=== PATIENT | male | born 1970 | race Caucasian/White ===

== ENCOUNTER → 2016-11-24 | Outpatient (CLI) | payer MEDICARE, MEDICAID ==
[2016-11-24 10:05] LABS: PROTHROMBIN TIME 15.4 SEC (11.4-15.4)
== END ==
LOC: OD 08:49
PROVIDERS: ATTEND Internal Medicine
DX: I48.91 Unspecified atrial fibrillation (principal)
CPT/HCPCS: 36415; 85610

== ENCOUNTER → 2016-12-09 | Outpatient (CLI) | payer MEDICARE, MEDICAID ==
[2016-12-09 09:34] LABS: ABSOLUTE EOSINOPHILS # (AUTO) 0.2 10^3/uL (0.0-0.6); ABSOLUTE LYMPHOCYTES (AUTO) 1.6 10^3/uL (0.5-4.7); ABSOLUTE MONOCYTES (AUTO) 0.5 10^3/uL (0.1-1.4); ABSOLUTE NEUT (AUTO) 5.9 10^3/uL (1.7-8.2); BASOPHILS % (AUTO) 0.4 % (0-2); EOSINOPHILS % (AUTO) 2.7 % (0-6); HEMATOCRIT 45.6 % (37.9-51.0); HGB HCT DIFFERENCE -0.6; LYMPHOCYTES % (AUTO) 19.8 % (13-45); MEAN CORPUSCULAR HEMOGLOBIN 26.7 pg (27.0-33.4); MEAN CORPUSCULAR HGB CONC 32.8 g/dL (32.0-36.0); MEAN CORPUSCULAR VOLUME 81 fl (80-97); RED BLOOD COUNT 5.61 10^6/uL (4.35-5.55); RED CELL DISTRIBUTION WIDTH 15.2 % (11.5-14.0); SEGMENTED NEUTROPHILS % (AUTO) 71.1 % (42-78); WHITE BLOOD COUNT 8.3 10^3/uL (4.0-10.5)
[2016-12-09 09:41] LABS: PROTHROMBIN TIME 29.3 SEC (11.4-15.4)
[2016-12-09 10:01] LABS: ALANINE AMINOTRANSFERASE 39 U/L (21-72); ALKALINE PHOSPHATASE 82 U/L (38-126); ANION GAP 8 (5-19); ASPARTATE AMINO TRANSFERASE 28 U/L (17-59); BILIRUBIN,TOTAL 0.9 mg/dL (0.2-1.3); BLOOD UREA NITROGEN 7 mg/dL (7-20); CALCIUM 9.4 mg/dL (8.4-10.2); CARBON DIOXIDE 29 mmol/L (22-30); CHLORIDE 102 mmol/L (98-107); CHOLESTEROL 131.93 mg/dL (0-200); CREATININE RESULT 0.81 mg/dL (0.52-1.25); Direct HDL 33 mg/dL (>40); GLUCOSE 230 mg/dL (75-110); POTASSIUM 4.5 mmol/L (3.6-5.0); SODIUM 139.4 mmol/L (137-145); TOTAL PROTEIN 6.9 g/dL (6.3-8.2); TRIGLYCERIDES 197 mg/dL (<150)
[2016-12-09 10:12] LABS: DIRECT LDL 68 mg/dL (<100)
[2016-12-09 10:14] LABS: VLDL CHOLESTEROL 39.4 mg/dL (10-31)
== END ==
LOC: OD 08:38
PROVIDERS: ATTEND Internal Medicine
DX: E11.9 Type 2 diabetes mellitus without complications (principal); E03.9 Hypothyroidism, unspecified; R53.82 Chronic fatigue, unspecified; I48.91 Unspecified atrial fibrillation; Z79.899 Other long term (current) drug therapy
CPT/HCPCS: 36415; 80053; 80061; 82043; 83036; 84443; 85025; 85610

== ENCOUNTER → 2017-01-27 | Outpatient (CLI) | payer MEDICARE, MEDICAID ==
[2017-01-27 11:51] LABS: PROTHROMBIN TIME 38.4 SEC (11.4-15.4)
== END ==
LOC: OD 10:43
PROVIDERS: ATTEND Internal Medicine
DX: I48.91 Unspecified atrial fibrillation (principal)
CPT/HCPCS: 36415; 85610

== ENCOUNTER → 2017-02-01 | Outpatient (CLI) | payer MEDICARE, MEDICAID ==
[2017-02-01 10:47] LABS: PROTHROMBIN TIME 21.8 SEC (11.4-15.4)
== END ==
LOC: OD 09:06
PROVIDERS: ATTEND Internal Medicine
DX: Z79.01 Long term (current) use of anticoagulants (principal)
CPT/HCPCS: 36415; 85610

== ENCOUNTER → 2017-02-15 | Outpatient (CLI) | payer MEDICARE, MEDICAID | LOC: OD 07:58 | PROVIDERS: ATTEND Internal Medicine | DX: Z79.01 Long term (current) use of anticoagulants (principal) | CPT/HCPCS: 36415; 85610 ==

== ENCOUNTER → 2017-02-21 | Outpatient (CLI) | payer MEDICARE, MEDICAID ==
[2017-02-21 12:05] LABS: PROTHROMBIN TIME 27.8 SEC (11.4-15.4)
== END ==
LOC: OD 09:34
PROVIDERS: ATTEND Internal Medicine
DX: Z79.01 Long term (current) use of anticoagulants (principal)
CPT/HCPCS: 36415; 85610

== ENCOUNTER → 2017-03-15 | Outpatient (CLI) | payer MEDICARE, MEDICAID | LOC: OD 08:42 | PROVIDERS: ATTEND Internal Medicine | DX: Z79.01 Long term (current) use of anticoagulants (principal) | CPT/HCPCS: 36415; 85610 ==

== ENCOUNTER → 2017-03-29 | Outpatient (CLI) | payer MEDICARE, MEDICAID | LOC: OD 07:29 | PROVIDERS: ATTEND Internal Medicine | DX: Z79.01 Long term (current) use of anticoagulants (principal); Z51.81 Encounter for therapeutic drug level monitoring | CPT/HCPCS: 36415; 85610 ==

== ENCOUNTER → 2017-04-26 | Outpatient (CLI) | payer MEDICARE, MEDICAID ==
[2017-04-26 09:39] LABS: PROTHROMBIN TIME 20.3 SEC (11.4-15.4)
== END ==
LOC: OD 08:53
PROVIDERS: ATTEND Internal Medicine
DX: Z79.01 Long term (current) use of anticoagulants (principal); Z51.81 Encounter for therapeutic drug level monitoring
CPT/HCPCS: 85610

== ENCOUNTER → 2017-05-17 | Outpatient (CLI) | payer MEDICARE, MEDICAID ==
[2017-05-17 09:44] LABS: PROTHROMBIN TIME 24.3 SEC (11.4-15.4)
== END ==
LOC: OD 08:36
PROVIDERS: ATTEND Internal Medicine
DX: Z79.01 Long term (current) use of anticoagulants (principal); Z51.81 Encounter for therapeutic drug level monitoring
CPT/HCPCS: 36415; 85610

== ENCOUNTER → 2017-06-16 | Outpatient (CLI) | payer MEDICARE, MEDICAID ==
[2017-06-16 10:42] LABS: PROTHROMBIN TIME 16.3 SEC (11.4-15.4)
== END ==
LOC: OD 10:00
PROVIDERS: ATTEND Internal Medicine
DX: Z79.01 Long term (current) use of anticoagulants (principal); Z51.81 Encounter for therapeutic drug level monitoring
CPT/HCPCS: 36415; 85610

== ENCOUNTER → 2017-06-21 | Outpatient (CLI) | payer MEDICARE, MEDICAID ==
[2017-06-21 10:21] LABS: ABSOLUTE EOSINOPHILS # (AUTO) 0.3 10^3/uL (0.0-0.6); ABSOLUTE LYMPHOCYTES (AUTO) 1.6 10^3/uL (0.5-4.7); ABSOLUTE MONOCYTES (AUTO) 0.4 10^3/uL (0.1-1.4); ABSOLUTE NEUT (AUTO) 4.7 10^3/uL (1.7-8.2); BASOPHILS % (AUTO) 0.7 % (0-2); EOSINOPHILS % (AUTO) 3.8 % (0-6); HEMATOCRIT 43.2 % (37.9-51.0); HEMOGLOBIN 14.6 g/dL (13.5-17.0); HGB HCT DIFFERENCE 0.6; LYMPHOCYTES % (AUTO) 22.6 % (13-45); MEAN CORPUSCULAR HEMOGLOBIN 26.9 pg (27.0-33.4); MEAN CORPUSCULAR HGB CONC 33.7 g/dL (32.0-36.0); MEAN CORPUSCULAR VOLUME 80 fl (80-97); MONOCYTES % (AUTO) 5.9 % (3-13); RED BLOOD COUNT 5.41 10^6/uL (4.35-5.55); RED CELL DISTRIBUTION WIDTH 14.9 % (11.5-14.0)
[2017-06-21 10:33] LABS: PROTHROMBIN TIME 28.2 SEC (11.4-15.4)
[2017-06-21 10:50] LABS: ALANINE AMINOTRANSFERASE 34 U/L (21-72); ALBUMIN 4.2 g/dL (3.5-5.0); ALKALINE PHOSPHATASE 96 U/L (38-126); ANION GAP 10 (5-19); ASPARTATE AMINO TRANSFERASE 26 U/L (17-59); BILIRUBIN,DIRECT 0.4 mg/dL (0.0-0.4); BILIRUBIN,TOTAL 0.7 mg/dL (0.2-1.3); BLOOD UREA NITROGEN 6 mg/dL (7-20); CALCIUM 9.5 mg/dL (8.4-10.2); CARBON DIOXIDE 28 mmol/L (22-30); CHLORIDE 102 mmol/L (98-107); CHOLESTEROL 125.77 mg/dL (0-200); Direct HDL 35 mg/dL (>40); GLUCOSE 267 mg/dL (75-110); POTASSIUM 4.2 mmol/L (3.6-5.0); SODIUM 139.8 mmol/L (137-145); TOTAL PROTEIN 7.4 g/dL (6.3-8.2); TRIGLYCERIDES 141 mg/dL (<150)
[2017-06-21 11:01] LABS: DIRECT LDL 66 mg/dL (<100)
[2017-06-22 11:40] LABS: CREATININE URINE 174.6 mg/dL (Not Estab.); MICROALBUMIN URINE 203.2 ug/mL (Not Estab.)
== END ==
LOC: OD 09:36
PROVIDERS: ATTEND Family Medicine Geriatric Medicine
DX: E03.9 Hypothyroidism, unspecified (principal); E11.9 Type 2 diabetes mellitus without complications; I10 Essential (primary) hypertension; E78.5 Hyperlipidemia, unspecified; N40.1 Benign prostatic hyperplasia with lower urinary tract symptoms; Z79.01 Long term (current) use of anticoagulants; Z79.899 Other long term (current) drug therapy
CPT/HCPCS: 36415; 80053; 80061; 82043; 82570; 83036; 84153; 84443; 85025; 85610

== ENCOUNTER 2017-07-28 11:32 | Emergency (ER) | payer MEDICARE, MEDICAID ==
[2017-07-28 11:42] VITALS: BP 135/77
[2017-07-28] MEDS ORDERED: METHYLPREDNISOLONE INJ 125 MG/2 ML SDV IM ONE (12:18)
--- NOTE | 2017-07-28 12:23 | ER Document Report ---
HPI - HPI Pain Level: 3 Notes: Patient is a 46-year-old male whose presents the ED complaining of a rash his hands bilaterally after using 2 different cleaning chemicals on Tuesday. Patient states that the rash started later that evening. Patient states that he did not wash his hands in between. Patient states that the rash has a burning sensation along with itchiness. Benadryl did help with his symptoms. He still eating and drinking well any difficulties. Patient has a history of diabetes, hypertension, hypothyroid, and hypercholesterolemia. Patient does take Coumadin. The rash has not been spreading. No other concerns or complaints at this time. Denies any other drug allergies. Denies any headache , fever, neck pain, URI, sore throat, chest pain, palpitations, syncope, cough, shortness of breath, wheeze, dyspnea, abdominal pain, nausea/vomiting/diarrhea, dysuria, hematuria, numbness/tingling, muscle paralysis/weakness, joint pains. Denies recent illness, travel, or insect bite. - ROS Notes: REVIEW OF SYSTEMS: CONSTITUTIONAL : Denies fever, chills, or sweats. Denies recent illness. EENT: Denies eye, ear, throat, or mouth pain or symptoms. Denies nasal or sinus congestion or discharge. Denies throat, tongue, or mouth swelling or difficulty swallowing. CARDIOVASCULAR: Denies chest pain. Denies palpitations or racing or irregular heart beat. Denies ankle edema. RESPIRATORY: Denies cough, cold, or chest congestion. Denies shortness of breath, difficulty breathing, or wheezing. GASTROINTESTINAL: Denies abdominal pain or distention. Denies nausea, vomiting , or diarrhea. Denies blood in vomitus, stools, or per rectum. Denies black, tarry stools. Denies constipation. GENITOURINARY: Denies difficulty urinating, painful urination, burning, frequency, blood in urine, or discharge. MUSCULOSKELETAL: Denies back or neck pain or stiffness. Denies joint pain or swelling. SKIN: see hpi NEUROLOGICAL: Denies confusion or altered mental status. Denies passing out or loss of consciousness. Denies dizziness or lightheadedness. Denies headache. Denies weakness or paralysis or loss of use of either side. Denies problems with gait or speech. Denies sensory loss, numbness, or tingling. ALL OTHER SYSTEMS REVIEWED AND NEGATIVE. Dictation was performed using Dragon voice recognition software - REPRODUCTIVE Reproductive: DENIES: : - DERM Skin Color: Normal Past Medical History - Social History Smoking Status: Unknown if Ever Smoked Family History: CAD, DM, Hyperlipidemia, Hypertension Patient has suicidal ideation: No Patient has homicidal ideation: No - Past Medical History Cardiac Medical History: Reports: Hx Congestive Heart Failure - dificulty breathing when lying down, sleeps sitting up, HAS MECHANICAL AORTIC VALVE, Hx Hypercholesterolemia, Hx Hypertension Denies: Hx Atrial Fibrillation, Hx Coronary Artery Disease, Hx Heart Attack, Hx Peripheral Vascular Disease, Hx Heart Murmur Pulmonary Medical History: Denies: Hx Asthma, Hx Bronchitis, Hx COPD, Hx Pneumonia, Hx Tuberculosis Neurological Medical History: Reports: Hx Migraine. Denies: Hx Cerebrovascular Accident, Hx Seizures Endocrine Medical History: Reports: Hx Diabetes Mellitus Type 2, Hx Hypothyroidism. Denies: Hx Graves' Disease, Hx Hyperthyroidism Renal/ Medical History: Reports: Hx Kidney Stones. Denies: Hx Benign Prostatic Hyperplasia, Hx End Stage Renal Disease, Hx Peritoneal Dialysis GI Medical History: Reports: Hx Gastroesophageal Reflux Disease Musculoskeltal Medical History: Reports Hx Arthritis, Denies Hx Fibromyalgia, Denies Hx Muscular Dystrophy, Reports Hx Musculoskeletal Deformity, Reports Hx Musculoskeletal Trauma Skin Medical History: Denies Hx MRSA Psychiatric Medical History: Denies: Hx Depression Traumatic Medical History: Reports: Hx Fractures Past Surgical History: Reports: Hx Cardiac Surgery - aortic bicuspid valve, replaced with mechanical valve, Hx Cholecystectomy, Hx Herniorrhaphy, Hx Kidney (Renal Surgery), Hx Orthopedic Surgery - L ankle, Hx Tonsillectomy. Denies: Hx Appendectomy, Hx Bowel Surgery, Hx Gastric Bypass Surgery, Hx Pacemaker. Comment Only: Hx Coronary Artery Bypass Graft - MECHANICAL VALVE PLACEMENT, - Immunizations Immunizations up to date: Yes Hx Diphtheria, Pertussis, Tetanus Vaccination: No Vertical Provider Document - CONSTITUTIONAL Agree With Documented VS: Yes Notes: PHYSICAL EXAMINATION: GENERAL: Well-appearing, well-nourished and in no acute distress. NECK: Normal range of motion, supple without lymphadenopathy LUNGS: Breath sounds clear to auscultation bilaterally and equal. No wheezes rales or rhonchi. HEART: Regular rate and rhythm without murmurs, rubs, gallops. Musculoskeletal: Hands b/l: FROM to passive/active. Strength 5+/5. Extremities: No cyanosis, clubbing, or edema b/l. Peripheral pulses 2+. Capillary refill less than 3 seconds. NEUROLOGICAL: Normal speech, normal gait. Normal sensory, motor exams PSYCH: Normal mood, normal affect. SKIN: maculopapular erythemic lesions to the hands b/l. Non-tender. No abscess , streaks, purulent discharge. No prox lymphadenopathy. - INFECTION CONTROL TRAVEL OUTSIDE OF THE [place] IN LAST 30 DAYS: No - RESPIRATORY O2 Sat by Pulse Oximetry: 96 Course - Re-evaluation Re-evalutation: 07/28/17 12:22 Patient is an afebrile, well-hydrated, 46-year-old male who presents the ED with suspected contact dermatitis to his hands bilaterally. Vitals are stable. PE otherwise unremarkable. Low suspicion for any necrotizing fasciitis, septic joint, sepsis, deep space infection, or other systemic emergent condition at this time. Patient is aware that his condition can change from initial presentation and he needs to monitor symptoms closely and seek medical attention if any acute changes. Solu-Medrol 125 mg given IM today. I will send him home with a prescription for triamcinolone that he can apply as directed. He may continue Benadryl as needed. Conservative measures otherwise for symptoms. Recheck with your PCM in 2-3 days. Return to the ED with any worsening/concerning symptoms otherwise as reviewed discharge. Consider consult with dermatology. Patient is in agreement. - Vital Signs Vital signs: Temp Pulse Resp BP Pulse Ox 97.7 F 87 20 135/77 H 96 07/28/17 11:39 07/28/17 11:39 07/28/17 11:39 07/28/17 11:39 07/28/17 11:39 Discharge - Discharge Clinical Impression: Contact dermatitis Qualifiers: Contact dermatitis type: irritant Contact dermatitis trigger: other chemical product Qualified Code(s): L24.5 - Irritant contact dermatitis due to other chemical products Condition: Stable Disposition: HOME, SELF-CARE Instructions: Contact Dermatitis ([facility]), Topical Steroid Cream or Ointment ([facility]) , Steroid Medication Injection Additional Instructions: Keep her hands clean and dry Use steroid cream as directed Benadryl as needed, will watch for drowsiness Monitor your blood glucose levels closely while on steroids and after steroid injection Tylenol/ibuprofen if needed Recheck with your PCM in 2-3 days* Consider consult with dermatology for ongoing/worsening symptoms Return to the ED with any worsening symptoms and/or development of fever, headache, chest pain, palpitations, syncope, shortness of breath, trouble breathing, abdominal pain, n/v/d, blood in stool/urine, abscess, purulent discharge, streaks, or other worsening symptoms that are concerning to you. Prescriptions: Triamcinolone Acetonide [Aristocort 0.5% Cream 15 gm] 1 applic TP BID #1 tube Forms: Elevated Blood Pressure Referrals: KVNG MACK DO [ACTIVE STAFF] - Follow up as needed
== END 2017-07-28 12:33 | disposition home or self-care (01) ==
LOC: ER 11:32
DX: T65.891A Toxic effect of other specified substances, accidental (unintentional), initial encounter (principal); L24.5 Irritant contact dermatitis due to other chemical products; E11.9 Type 2 diabetes mellitus without complications; I10 Essential (primary) hypertension; Z95.2 Presence of prosthetic heart valve; Z79.01 Long term (current) use of anticoagulants
CPT/HCPCS: 99283; 96372; J2930

== ENCOUNTER → 2017-08-09 | Outpatient (CLI) | payer MEDICARE, MEDICAID ==
[2017-08-09 10:25] LABS: PROTHROMBIN TIME 28.4 SEC (11.4-15.4)
== END ==
LOC: OD 09:25
PROVIDERS: ATTEND Internal Medicine
DX: I35.0 Nonrheumatic aortic (valve) stenosis (principal); Z95.2 Presence of prosthetic heart valve; Z79.01 Long term (current) use of anticoagulants
CPT/HCPCS: 36415; 85610

== ENCOUNTER → 2017-09-22 | Outpatient (CLI) | payer MEDICARE, MEDICAID ==
[2017-09-22 12:02] LABS: PROTHROMBIN TIME 17.1 SEC (11.4-15.4)
== END ==
LOC: OD 10:41
PROVIDERS: ATTEND Internal Medicine
DX: Z51.81 Encounter for therapeutic drug level monitoring (principal); Z79.01 Long term (current) use of anticoagulants
CPT/HCPCS: 36415; 85610

== ENCOUNTER → 2017-09-26 | Outpatient (CLI) | payer MEDICARE, MEDICAID ==
[2017-09-26 10:37] LABS: INTERNATIONAL RATION (INR) 1.62; PROTHROMBIN TIME 20.2 SEC (11.4-15.4)
== END ==
LOC: OD 09:24
PROVIDERS: ATTEND Internal Medicine
DX: I49.5 Sick sinus syndrome (principal); Z79.01 Long term (current) use of anticoagulants; Z95.2 Presence of prosthetic heart valve
CPT/HCPCS: 36415; 85610

== ENCOUNTER → 2017-10-03 | Outpatient (CLI) | payer MEDICARE, MEDICAID ==
[2017-10-03 11:32] LABS: PROTHROMBIN TIME 23.3 SEC (11.4-15.4)
== END ==
LOC: OD 09:35
PROVIDERS: ATTEND Internal Medicine
DX: I35.0 Nonrheumatic aortic (valve) stenosis (principal); Z79.01 Long term (current) use of anticoagulants
CPT/HCPCS: 36415; 85610

== ENCOUNTER → 2017-10-25 | Outpatient (CLI) | payer MEDICARE, MEDICAID ==
[2017-10-25 10:30] LABS: PROTHROMBIN TIME 14.8 SEC (11.4-15.4)
== END ==
LOC: OD 09:20
PROVIDERS: ATTEND Internal Medicine
DX: Z51.81 Encounter for therapeutic drug level monitoring (principal); Z79.01 Long term (current) use of anticoagulants
CPT/HCPCS: 36415; 85610

== ENCOUNTER 2017-11-17 15:36 | Emergency (ER) | payer MEDICARE, MEDICAID ==
[2017-11-17] MEDS ORDERED: NORMAL SALINE 1000 ML 1,000 ML IV ONE ×2 (19:39→20:58)
[2017-11-17] MEDS ORDERED: ONDANSETRON 4 MG TAB.RAPDIS PO ONE (19:39)
--- NOTE | 2017-11-17 19:41 | ER Document Report ---
ED Medical Screen (RME) - General Chief Complaint: Vomiting Stated Complaint: WEAKNESS Time Seen by Provider: 11/17/17 19:35 Notes: 46-year-old male patient reports waking up at 4 AM yesterday morning with nausea and vomiting. He had nausea vomiting throughout the day and is continued throughout the day. He did have diarrhea throughout the day yesterday but not any diarrhea today there is no fever. He was coughing a lot yesterday much less today. There is no fever. I have greeted and performed a rapid initial assessment of this patient. A comprehensive ED assessment and evaluation of the patient, analysis of test results and completion of the medical decision making process will be conducted by additional ED providers. TRAVEL OUTSIDE OF THE [place] IN LAST 30 DAYS: No - Related Data Allergies/Adverse Reactions: No Known Allergies Allergy (Verified 11/17/17 15:38) Past Medical History - Social History Frequency of alcohol use: None Drug Abuse: None Family history: Reviewed & Not Pertinent - Past Medical History Cardiac Medical History: Reports: Hx Congestive Heart Failure - dificulty breathing when lying down, sleeps sitting up, HAS MECHANICAL AORTIC VALVE, Hx Hypercholesterolemia, Hx Hypertension Denies: Hx Atrial Fibrillation, Hx Coronary Artery Disease, Hx Heart Attack, Hx Peripheral Vascular Disease, Hx Heart Murmur Pulmonary Medical History: Denies: Hx Asthma, Hx Bronchitis, Hx COPD, Hx Pneumonia, Hx Tuberculosis Neurological Medical History: Reports: Hx Migraine. Denies: Hx Cerebrovascular Accident, Hx Seizures Endocrine Medical History: Reports: Hx Diabetes Mellitus Type 2, Hx Hypothyroidism. Denies: Hx Graves' Disease, Hx Hyperthyroidism Renal/ Medical History: Reports: Hx Kidney Stones. Denies: Hx Benign Prostatic Hyperplasia, Hx End Stage Renal Disease, Hx Peritoneal Dialysis GI Medical History: Reports: Hx Gastroesophageal Reflux Disease Musculoskeltal Medical History: Reports Hx Arthritis, Denies Hx Fibromyalgia, Denies Hx Muscular Dystrophy, Reports Hx Musculoskeletal Deformity, Reports Hx Musculoskeletal Trauma Skin Medical History: Denies Hx MRSA Psychiatric Medical History: Denies: Hx Depression Traumatic Medical History: Reports: Hx Fractures Past Surgical History: Reports: Hx Cardiac Surgery - aortic bicuspid valve, replaced with mechanical valve, Hx Cholecystectomy, Hx Herniorrhaphy, Hx Kidney (Renal Surgery), Hx Orthopedic Surgery - L ankle, Hx Tonsillectomy. Denies: Hx Appendectomy, Hx Bowel Surgery, Hx Gastric Bypass Surgery, Hx Pacemaker. Comment Only: Hx Coronary Artery Bypass Graft - MECHANICAL VALVE PLACEMENT, - Immunizations Immunizations up to date: Yes Hx Diphtheria, Pertussis, Tetanus Vaccination: No Physical Exam - Vital signs Vitals: Temp Pulse Resp BP Pulse Ox 98.3 F 109 H 16 133/92 H 95 11/17/17 15:45 11/17/17 15:45 11/17/17 15:45 11/17/17 15:45 11/17/17 15:45 Course - Vital Signs Vital signs: Temp Pulse Resp BP Pulse Ox 98.3 F 105 H 18 117/93 H 97 11/17/17 15:45 11/17/17 19:38 11/17/17 19:38 11/17/17 19:38 11/17/17 19:38
[2017-11-17 20:34] LABS: ABSOLUTE BASOPHILS # (AUTO) 0.1 10^3/uL (0.0-0.2); ABSOLUTE EOSINOPHILS # (AUTO) 0.4 10^3/uL (0.0-0.6); ABSOLUTE LYMPHOCYTES (AUTO) 3.3 10^3/uL (0.5-4.7); ABSOLUTE MONOCYTES (AUTO) 0.9 10^3/uL (0.1-1.4); ABSOLUTE NEUT (AUTO) 9.4 10^3/uL (1.7-8.2); BASOPHILS % (AUTO) 0.5 % (0-2); HEMATOCRIT 50.9 % (37.9-51.0); HEMOGLOBIN 16.8 g/dL (13.5-17.0); LYMPHOCYTES % (AUTO) 23.7 % (13-45); MEAN CORPUSCULAR HEMOGLOBIN 26.6 pg (27.0-33.4); MEAN CORPUSCULAR HGB CONC 32.9 g/dL (32.0-36.0); MEAN CORPUSCULAR VOLUME 81 fl (80-97); MONOCYTES % (AUTO) 6.3 % (3-13); RED BLOOD COUNT 6.31 10^6/uL (4.35-5.55); RED CELL DISTRIBUTION WIDTH 14.7 % (11.5-14.0); SEGMENTED NEUTROPHILS % (AUTO) 66.5 % (42-78); TOTAL CELLS COUNTED % (AUTO) 100 %; WHITE BLOOD COUNT 14.1 10^3/uL (4.0-10.5)
[2017-11-17 20:39] LABS: ALANINE AMINOTRANSFERASE 35 U/L (21-72); ALBUMIN 4.8 g/dL (3.5-5.0); ALKALINE PHOSPHATASE 116 U/L (38-126); ANION GAP 16 (5-19); ASPARTATE AMINO TRANSFERASE 25 U/L (17-59); BILIRUBIN,DIRECT 0.3 mg/dL (0.0-0.4); BLOOD UREA NITROGEN 17 mg/dL (7-20); CALCIUM 10.9 mg/dL (8.4-10.2); CARBON DIOXIDE 30 mmol/L (22-30); CHLORIDE 86 mmol/L (98-107); POTASSIUM 4.3 mmol/L (3.6-5.0); SODIUM 132.2 mmol/L (137-145); TOTAL PROTEIN 7.6 g/dL (6.3-8.2)
[2017-11-17 20:40] LABS: APPEARANCE,URINE CLEAR; BILIRUBIN,URINE NEGATIVE (NEGATIVE); COLOR,URINE STRAW; GLUCOSE, URINE >=500 mg/dL (NEGATIVE); KETONES,URINE NEGATIVE (NEGATIVE); LEUKOCYTE ESTERASE,URINE NEGATIVE (NEGATIVE); NITRITE,URINE NEGATIVE (NEGATIVE); PROTEIN,URINE NEGATIVE (NEGATIVE); URINE SPECIFIC GRAVITY 1.031; UROBILINOGEN,URINE NEGATIVE mg/dL (<2.0)
[2017-11-17 20:51] LABS: PLATELET COUNT 181 10^3/uL (150-450)
[2017-11-17 20:53] LABS: GLUCOSE 614 mg/dL (75-110)
[2017-11-17] MEDS ORDERED: INSULIN REG, HUMAN 100 UNIT/ML 3 ML VIAL (PYX) IV ONE ×2 (21:23→22:56)
--- NOTE | 2017-11-17 22:36 | ER Document Report ---
ED General - General Mode of Arrival: Ambulatory Information source: Patient TRAVEL OUTSIDE OF THE [place] IN LAST 30 DAYS: No <JG HARTMANN - Last Filed: 11/18/17 04:02> <ROBIN SPENCER - Last Filed: 11/18/17 04:06> - General Chief Complaint: Vomiting Stated Complaint: WEAKNESS Time Seen by Provider: 11/17/17 19:35 Notes: Patient is a 46-year-old male who presents to the emergency department today with complaints of diarrhea and vomiting. Patient states that he takes metformin and glipizide for diabetes and he is unsure if his blood sugar has "ever been this high". Patient also complains of associated weakness, lightheadedness, and abdominal pain. (JG HARTMANN) - Related Data Allergies/Adverse Reactions: No Known Allergies Allergy (Verified 11/17/17 15:38) Past Medical History - General Information source: Patient - Social History Smoking Status: Never Smoker Cigarette use (# per day): No Frequency of alcohol use: None Drug Abuse: None Lives with: Family Family History: Reviewed & Not Pertinent, CAD, DM, Hyperlipidemia, Hypertension Patient has suicidal ideation: No Patient has homicidal ideation: No - Past Medical History Cardiac Medical History: Reports: Hx Congestive Heart Failure - dificulty breathing when lying down, sleeps sitting up, HAS MECHANICAL AORTIC VALVE, Hx Hypercholesterolemia, Hx Hypertension Neurological Medical History: Reports: Hx Migraine Endocrine Medical History: Reports: Hx Diabetes Mellitus Type 2, Hx Hypothyroidism Renal/ Medical History: Reports: Hx Kidney Stones GI Medical History: Reports: Hx Gastroesophageal Reflux Disease Musculoskeltal Medical History: Reports Hx Arthritis, Reports Hx Musculoskeletal Deformity, Reports Hx Musculoskeletal Trauma Traumatic Medical History: Reports: Hx Fractures Past Surgical History: Reports: Hx Cardiac Surgery - aortic bicuspid valve, replaced with mechanical valve, Hx Cholecystectomy, Hx Herniorrhaphy, Hx Kidney (Renal Surgery), Hx Orthopedic Surgery - L ankle, Hx TonsillectomyComment Only: Hx Coronary Artery Bypass Graft - MECHANICAL VALVE PLACEMENT, - Immunizations Immunizations up to date: Yes Hx Diphtheria, Pertussis, Tetanus Vaccination: No <JG HARTMANN - Last Filed: 11/18/17 04:02> Review of Systems - Review of Systems Constitutional: See HPI, Weakness EENT: No symptoms reported Cardiovascular: See HPI, Lightheaded Respiratory: See HPI, Short of breath Gastrointestinal: See HPI, Diarrhea, Vomiting Genitourinary: No symptoms reported Male Genitourinary: No symptoms reported Musculoskeletal: No symptoms reported Skin: No symptoms reported Hematologic/Lymphatic: No symptoms reported Neurological/Psychological: No symptoms reported -: Yes All other systems reviewed and negative <JG HARTMANN - Last Filed: 11/18/17 04:02> Physical Exam <JG HARTMANN - Last Filed: 11/18/17 04:02> <ROBIN SPENCER - Last Filed: 11/18/17 04:06> - Vital signs Vitals: Temp Pulse Resp BP Pulse Ox 98.3 F 109 H 16 133/92 H 95 11/17/17 15:45 11/17/17 15:45 11/17/17 15:45 11/17/17 15:45 11/17/17 15:45 - Notes Notes: Physical Exam: General: Alert, appears well. HEENT: Normocephalic. Atraumatic. PERRL. Extraocular movements intact. Oropharynx clear. Dry mucous membranes. Neck: Supple. Non-tender. Respiratory: No respiratory distress. Clear and equal breath sounds bilaterally. Cardiovascular: Tachycardic, regular rhythm. Abdominal: Obese. Mild LUQ tenderness with palpation. No distension. Normal Bowel Sounds. Back: Non-tender. No deformity or step off. Extremities: Moves all four extremities. Upper extremities: Normal inspection. Normal ROM. Lower extremities: Normal inspection. No edema. Normal ROM. Neurological: Normal cognition. AAOx4. Normal speech. Psychological: Normal affect. Normal Mood. Skin: Warm. Dry. Normal color. (JG HARTMANN) Course - Laboratory Result Diagrams: 11/17/17 20:00 11/17/17 20:00 <JG HARTMANN - Last Filed: 11/18/17 04:02> - Laboratory Result Diagrams: 11/17/17 20:00 11/17/17 20:00 <ROBIN SPENCER - Last Filed: 11/18/17 04:06> - Re-evaluation Re-evalutation: 11/18/17 Patient is a 46-year-old male who comes in after diarrhea yesterday and vomiting today. Patient had some left and epigastric pain that he states he thinks is from vomiting and now because he is hungry. Patient was found to be hyperglycemic with no acidosis. He is taking p.o. without difficulty. Blood sugar has been treated with insulin. Patient has not been able to take his metformin and glipizide the last 2 days because of nausea vomiting. That is completely resolved. He is having bowel movements. Patient has been fed and is feeling much better. He would like to go home. Stable for discharge. Return immediately if any worsening or concerning symptoms. (ROBIN SPENCER) - Vital Signs Vital signs: Temp Pulse Resp BP Pulse Ox 98 F 85 14 130/82 H 97 11/18/17 01:00 11/18/17 01:00 11/18/17 01:00 11/18/17 01:00 11/18/17 01:00 - Laboratory Laboratory results interpreted by me: 11/17/17 11/17/17 11/17/17 19:50 20:00 20:00 WBC 14.1 H RBC 6.31 H MCH 26.6 L RDW 14.7 H Absolute Neutrophils 9.4 H Sodium 132.2 L Chloride 86 L Glucose 614 H* POC Glucose Calcium 10.9 H Urine Glucose (UA) >=500 H Urine Blood MODERATE H 11/17/17 22:54 WBC RBC MCH RDW Absolute Neutrophils Sodium Chloride Glucose POC Glucose 330 H Calcium Urine Glucose (UA) Urine Blood Discharge <JG HARTMANN - Last Filed: 11/18/17 04:02> <ROBIN SPENCER - Last Filed: 11/18/17 04:06> - Discharge Clinical Impression: Hyperglycemia Vomiting Qualifiers: Vomiting type: unspecified Vomiting Intractability: non-intractable Nausea presence: with nausea Qualified Code(s): R11.2 - Nausea with vomiting, unspecified Diabetes mellitus, type 2 Qualifiers: Diabetes mellitus complication status: with hyperglycemia Diabetes mellitus group home insulin use: without terminal supervisor use Qualified Code(s): E11.65 - Type 2 diabetes mellitus with hyperglycemia Condition: Stable Disposition: HOME, SELF-CARE Instructions: Abdominal Pain ([facility]), Hyperglycemia ([facility]), Vomiting ([facility]) Referrals: ROSA SIEGEL MD [Primary Care Provider] - Follow up as needed Scribe Attestation: 11/18/17 04:06 I personally performed the services described in the documentation, reviewed and edited the documentation which was dictated to the scribe in my presence, and it accurately records my words and actions. (ROBIN SPENCER) Scribe Documentation - Scribe Written by Lazaroibe:: Sigrid Workman, 11/18/2017 [id number] acting as scribe for :: Mic <JG HARTMANN - Last Filed: 11/18/17 04:02>
[2017-11-18 01:16] VITALS: BP 130/82
== END 2017-11-18 01:10 | disposition home or self-care (01) ==
LOC: ER 15:36
DX: E11.65 Type 2 diabetes mellitus with hyperglycemia (principal); R11.2 Nausea with vomiting, unspecified; R53.1 Weakness; R19.7 Diarrhea, unspecified; R06.02 Shortness of breath; I50.9 Heart failure, unspecified; E03.9 Hypothyroidism, unspecified; Z79.84 Long term (current) use of oral hypoglycemic drugs; Z95.4 Presence of other heart-valve replacement; Z90.49 Acquired absence of other specified parts of digestive tract; Z79.4 Long term (current) use of insulin
CPT/HCPCS: 99285; 96360; 96361; 36415; 82962; 85025; 80053; 81001; A9270 ×2; J7030; J1815; S0119

== ENCOUNTER → 2017-11-28 | Outpatient (CLI) | payer MEDICARE, MEDICAID ==
[2017-11-28 09:52] LABS: INTERNATIONAL RATION (INR) 2.28; PROTHROMBIN TIME 26.3 SEC (11.4-15.4)
== END ==
LOC: OD 08:28
PROVIDERS: ATTEND Family Medicine Geriatric Medicine
DX: I49.5 Sick sinus syndrome (principal); Z95.2 Presence of prosthetic heart valve
CPT/HCPCS: 36415; 85610

== ENCOUNTER 2017-12-12 21:27 | Inpatient (IN) | payer MEDICARE, MEDICAID ==
--- NOTE | 2017-12-12 22:36 | EKG REPORT ---
SEVERITY:- BORDERLINE ECG - SINUS RHYTHM BORDERLINE T WAVE ABNORMALITIES : Confirmed by: Ray Randhawa 12-Dec-2017 22:35:54
[2017-12-12] MEDS ORDERED: ONDANSETRON 4 MG TAB.RAPDIS PO ONE (22:55)
[2017-12-13] MEDS ORDERED: ASPIRIN 81 MG TABLET, CHEWABLE PO ONE (01:31)
--- NOTE | 2017-12-13 01:31 | ER Document Report ---
ED Medical Screen (RME) - General Chief Complaint: Chest Pain Stated Complaint: CHEST PAIN Time Seen by Provider: 12/13/17 01:28 Mode of Arrival: Ambulatory Information source: Patient Notes: 46-year-old male presented to ED for complaint of chest pain nausea and vomiting. He has a history of open heart surgery with a mechanical valve. He is on Coumadin. He is already been treated with Zofran for his nausea and vomiting 15 today. His lungs are clear to auscultation. I have greeted and performed a rapid initial assessment of this patient. A comprehensive ED assessment and evaluation of the patient, analysis of test results and completion of medical decision making process will be conducted by an additional ED providers. TRAVEL OUTSIDE OF THE [place] IN LAST 30 DAYS: No - Related Data Allergies/Adverse Reactions: No Known Allergies Allergy (Verified 11/17/17 15:38) Past Medical History - Social History Family history: Reviewed & Not Pertinent - Past Medical History Cardiac Medical History: Reports: Hx Congestive Heart Failure - dificulty breathing when lying down, sleeps sitting up, HAS MECHANICAL AORTIC VALVE, Hx Hypercholesterolemia, Hx Hypertension Denies: Hx Atrial Fibrillation, Hx Coronary Artery Disease, Hx Heart Attack, Hx Peripheral Vascular Disease, Hx Heart Murmur Pulmonary Medical History: Denies: Hx Asthma, Hx Bronchitis, Hx COPD, Hx Pneumonia, Hx Tuberculosis Neurological Medical History: Reports: Hx Migraine. Denies: Hx Cerebrovascular Accident, Hx Seizures Endocrine Medical History: Reports: Hx Diabetes Mellitus Type 2, Hx Hypothyroidism. Denies: Hx Graves' Disease, Hx Hyperthyroidism Renal/ Medical History: Reports: Hx Kidney Stones. Denies: Hx Benign Prostatic Hyperplasia, Hx End Stage Renal Disease, Hx Peritoneal Dialysis GI Medical History: Reports: Hx Gastroesophageal Reflux Disease Musculoskeltal Medical History: Reports Hx Arthritis, Denies Hx Fibromyalgia, Denies Hx Muscular Dystrophy, Reports Hx Musculoskeletal Deformity, Reports Hx Musculoskeletal Trauma Skin Medical History: Denies Hx MRSA Psychiatric Medical History: Denies: Hx Depression Traumatic Medical History: Reports: Hx Fractures Past Surgical History: Reports: Hx Cardiac Surgery - aortic bicuspid valve, replaced with mechanical valve, Hx Cholecystectomy, Hx Herniorrhaphy, Hx Kidney (Renal Surgery), Hx Orthopedic Surgery - L ankle, Hx Tonsillectomy. Denies: Hx Appendectomy, Hx Bowel Surgery, Hx Gastric Bypass Surgery, Hx Pacemaker. Comment Only: Hx Coronary Artery Bypass Graft - MECHANICAL VALVE PLACEMENT, - Immunizations Immunizations up to date: Yes Hx Diphtheria, Pertussis, Tetanus Vaccination: No Physical Exam - Vital signs Vitals: Pulse Resp BP Pulse Ox 95 16 117/86 H 95 12/12/17 22:42 12/12/17 22:42 12/12/17 22:42 12/12/17 22:42 Course - Vital Signs Vital signs: Temp Pulse Resp BP Pulse Ox 95 16 117/86 H 95 12/12/17 22:42 12/12/17 22:42 12/12/17 22:42 12/12/17 22:42
[2017-12-13 02:29] LABS: ABSOLUTE BASOPHILS # (AUTO) 0.1 10^3/uL (0.0-0.2); ABSOLUTE EOSINOPHILS # (AUTO) 0.4 10^3/uL (0.0-0.6); ABSOLUTE MONOCYTES (AUTO) 0.8 10^3/uL (0.1-1.4); ABSOLUTE NEUT (AUTO) 7.7 10^3/uL (1.7-8.2); BASOPHILS % (AUTO) 0.5 % (0-2); EOSINOPHILS % (AUTO) 3.4 % (0-6); HEMATOCRIT 48.9 % (37.9-51.0); HEMOGLOBIN 16.1 g/dL (13.5-17.0); LYMPHOCYTES % (AUTO) 25.4 % (13-45); MEAN CORPUSCULAR HEMOGLOBIN 27.1 pg (27.0-33.4); MEAN CORPUSCULAR HGB CONC 32.9 g/dL (32.0-36.0); MEAN CORPUSCULAR VOLUME 82 fl (80-97); MONOCYTES % (AUTO) 6.6 % (3-13); PLATELET COUNT 155 10^3/uL (150-450); RED BLOOD COUNT 5.93 10^6/uL (4.35-5.55); RED CELL DISTRIBUTION WIDTH 14.8 % (11.5-14.0); SEGMENTED NEUTROPHILS % (AUTO) 64.1 % (42-78); TOTAL CELLS COUNTED % (AUTO) 100 %; WHITE BLOOD COUNT 11.9 10^3/uL (4.0-10.5)
--- NOTE | 2017-12-13 02:41 | RADIOLOGY REPORT (SQ) ---
EXAM DESCRIPTION: CHEST PA/LAT CLINICAL HISTORY: chest pain COMPARISON: 04/29/2016 FINDINGS: Frontal and lateral views of the chest. Cardia mediastinal silhouette is stable. Prior CABG. No consolidation, pneumothorax, or pleural effusion. No displaced rib fractures identified. Upper abdominal soft tissues are unremarkable. IMPRESSION: 1. No acute pulmonary process identified.
[2017-12-13 03:01] LABS: ALANINE AMINOTRANSFERASE 40 U/L (21-72); ALBUMIN 4.7 g/dL (3.5-5.0); ALKALINE PHOSPHATASE 104 U/L (38-126); ANION GAP 14 (5-19); ASPARTATE AMINO TRANSFERASE 23 U/L (17-59); BILIRUBIN,DIRECT 0.5 mg/dL (0.0-0.4); BILIRUBIN,TOTAL 0.7 mg/dL (0.2-1.3); BLOOD UREA NITROGEN 32 mg/dL (7-20); CALCIUM 11.4 mg/dL (8.4-10.2); CARBON DIOXIDE 29 mmol/L (22-30); CHLORIDE 89 mmol/L (98-107); CREATINE KINASE 38 U/L (55-170); LIPASE 163.4 U/L (23-300); MAGNESIUM 1.8 mg/dL (1.6-2.3); POTASSIUM 4.8 mmol/L (3.6-5.0); SODIUM 131.5 mmol/L (137-145); TOTAL PROTEIN 7.5 g/dL (6.3-8.2)
[2017-12-13] MEDS ORDERED: NORMAL SALINE 1000 ML 1,000 ML IV ONE (03:17)
--- NOTE | 2017-12-13 03:22 | ER Document Report ---
ED General - General Chief Complaint: Chest Pain Stated Complaint: CHEST PAIN Time Seen by Provider: 12/13/17 01:28 Mode of Arrival: Ambulatory Information source: Patient Notes: 46-year-old male history of aortic valve replacement mechanical presents with complaints of nausea vomiting diarrhea over the past day with lightheadedness and dizziness when he stands. She denies any fevers or chills, notes the pain is generalized, he does not also note that his heart is pounding hard. Patient denies any family history of coronary artery disease at a young age, grandparents have had heart attacks in their late 50s and 60s TRAVEL OUTSIDE OF THE [place] IN LAST 30 DAYS: No - HPI Onset: Yesterday Onset/Duration: Persistent Quality of pain: Achy, Cramping Severity: Mild Pain Level: 1 Associated symptoms: Chest pain, Diarrhea, Nausea, Vomiting Exacerbated by: Denies Relieved by: Denies Similar symptoms previously: No Recently seen / treated by doctor: No - Related Data Allergies/Adverse Reactions: No Known Allergies Allergy (Verified 11/17/17 15:38) Past Medical History - General Information source: Patient - Social History Smoking Status: Never Smoker Cigarette use (# per day): No Chew tobacco use (# tins/day): No Smoking Education Provided: No Family History: Reviewed & Not Pertinent, CAD, DM, Hyperlipidemia, Hypertension Patient has suicidal ideation: No Patient has homicidal ideation: No - Past Medical History Cardiac Medical History: Reports: Hx Congestive Heart Failure - dificulty breathing when lying down, sleeps sitting up, HAS MECHANICAL AORTIC VALVE, Hx Hypercholesterolemia, Hx Hypertension Denies: Hx Atrial Fibrillation, Hx Coronary Artery Disease, Hx Heart Attack, Hx Peripheral Vascular Disease, Hx Heart Murmur Pulmonary Medical History: Denies: Hx Asthma, Hx Bronchitis, Hx COPD, Hx Pneumonia, Hx Tuberculosis Neurological Medical History: Reports: Hx Migraine. Denies: Hx Cerebrovascular Accident, Hx Seizures Endocrine Medical History: Reports: Hx Diabetes Mellitus Type 2, Hx Hypothyroidism. Denies: Hx Graves' Disease, Hx Hyperthyroidism Renal/ Medical History: Reports: Hx Kidney Stones. Denies: Hx Benign Prostatic Hyperplasia, Hx End Stage Renal Disease, Hx Peritoneal Dialysis GI Medical History: Reports: Hx Gastroesophageal Reflux Disease Musculoskeltal Medical History: Reports Hx Arthritis, Denies Hx Fibromyalgia, Denies Hx Muscular Dystrophy, Reports Hx Musculoskeletal Deformity, Reports Hx Musculoskeletal Trauma Skin Medical History: Denies Hx MRSA Psychiatric Medical History: Denies: Hx Depression Traumatic Medical History: Reports: Hx Fractures Past Surgical History: Reports: Hx Cardiac Surgery - aortic bicuspid valve, replaced with mechanical valve, Hx Cholecystectomy, Hx Herniorrhaphy, Hx Kidney (Renal Surgery), Hx Orthopedic Surgery - L ankle, Hx Tonsillectomy. Denies: Hx Appendectomy, Hx Bowel Surgery, Hx Gastric Bypass Surgery, Hx Pacemaker. Comment Only: Hx Coronary Artery Bypass Graft - MECHANICAL VALVE PLACEMENT, - Immunizations Immunizations up to date: Yes Hx Diphtheria, Pertussis, Tetanus Vaccination: No Review of Systems - Review of Systems Notes: REVIEW OF SYSTEMS: CONSTITUTIONAL : Denies fever, chills, or sweats. Denies recent illness. EENT: Denies eye, ear, throat, or mouth pain or symptoms. Denies nasal or sinus congestion or discharge. Denies throat, tongue, or mouth swelling or difficulty swallowing. CARDIOVASCULAR: Admits to chest palpitations RESPIRATORY: Denies cough, cold, or chest congestion. Denies shortness of breath, difficulty breathing, or wheezing. GASTROINTESTINAL: Admits to abdominal pain nausea vomiting GENITOURINARY: Denies difficulty urinating, painful urination, burning, frequency, blood in urine, or discharge. MUSCULOSKELETAL: Denies back or neck pain or stiffness. Denies joint pain or swelling. SKIN: Denies rash, lesions or sores. HEMATOLOGIC : Denies easy bruising or bleeding. LYMPHATIC: Denies swollen, enlarged glands. NEUROLOGICAL: Denies confusion or altered mental status. Denies passing out or loss of consciousness. Denies dizziness or lightheadedness. Denies headache. Denies weakness or paralysis or loss of use of either side. Denies problems with gait or speech. Denies sensory loss, numbness, or tingling. Denies seizures. PSYCHIATRIC: Denies anxiety or stress. Denies depression, suicidal ideation, or homicidal ideation. ALL OTHER SYSTEMS REVIEWED AND NEGATIVE. Dictation was performed using [employer] voice recognition software PHYSICAL EXAMINATION: GENERAL: Well-appearing, well-nourished and in no acute distress. HEAD: Atraumatic, normocephalic. EYES: Pupils equal round and reactive to light, extraocular movements intact, sclera anicteric, conjunctiva are normal. ENT: Nares patent, oropharynx clear without exudates. Moist mucous membranes. NECK: Normal range of motion, supple without lymphadenopathy LUNGS: Breath sounds clear to auscultation bilaterally and equal. No wheezes rales or rhonchi. HEART: Regular rate and rhythm without murmurs chemical valve noted ABDOMEN: Generalized abdominal pain Musculoskeletal: Normal range of motion, no pitting or edema. No cyanosis. NEUROLOGICAL: Cranial nerves grossly intact. Normal speech, normal gait. Normal sensory, motor exams PSYCH: Normal mood, normal affect. SKIN: Warm, Dry, normal turgor, no rashes or lesions noted. Physical Exam - Vital signs Vitals: Pulse Resp BP Pulse Ox 95 16 117/86 H 95 12/12/17 22:42 12/12/17 22:42 12/12/17 22:42 12/12/17 22:42 Course - Re-evaluation Re-evalutation: 12/13/17 03:22 Patient's presentation is consistent with more abdominal issues rather than cardiac issue, it appears that he is having nausea vomiting and diarrhea consistently nonetheless I have ordered cardiac enzymes to evaluate the heart as well. Patient will be given IV fluids he notes his nausea is already controlled with medication as provided - Vital Signs Vital signs: Temp Pulse Resp BP Pulse Ox 98.3 F 92 16 134/84 H 97 12/13/17 01:27 12/13/17 01:27 12/13/17 01:27 12/13/17 01:27 12/13/17 01:27 - Laboratory Result Diagrams: 12/13/17 02:00 12/13/17 02:00 Laboratory results interpreted by me: 12/13/17 12/13/17 02:00 02:00 WBC 11.9 H RBC 5.93 H RDW 14.8 H Sodium 131.5 L Chloride 89 L BUN 32 H Glucose 607 H* Calcium 11.4 H Direct Bilirubin 0.5 H Creatine Kinase 38 L - Diagnostic Test Radiology reviewed: Image reviewed, Reports reviewed - EKG Interpretation by Me EKG shows normal: Sinus rhythm, [place], Intervals, QRS Complexes Critical Care Note - Critical Care Note Total time excluding time spent on procedures (mins): 44 Comments: minutes of critical care time spent in direct contact evaluating and reevaluating the patient, treating symptoms, reviewing labs and studies and speaking with family and consultants excluding any procedures Discharge - Discharge Clinical Impression: History of mechanical aortic valve replacement, severe hyperglycemia Chest pain Qualifiers: Chest pain type: unspecified Qualified Code(s): R07.9 - Chest pain, unspecified Condition: Stable Disposition: ADMITTED OBSERVATION Admitting Provider: Hospitalist Unit Admitted: Telemetry
[2017-12-13 03:28] LABS: GLUCOSE 607 mg/dL (75-110)
[2017-12-13] MEDS ORDERED: INSULIN REG, HUMAN 100 UNIT/ML 3 ML VIAL (PYX) IV ONE ×2 (03:31→05:25)
[2017-12-13] MEDS ORDERED: NORMAL SALINE 1000 ML 1,000 ML IV PRN ×3 (03:31→08:45)
[2017-12-13 03:41] LABS: CREATINE KINASE MB 0.43 ng/mL (<4.55)
[2017-12-13 03:42] LABS: TROPONIN I < 0.012 ng/mL
[2017-12-13 04:02] LABS: VENOUS BLOOD HCO3 28.5 mmol/L (20-32); VENOUS BLOOD PCO2 51.1 mmHg (35-63); VENOUS BLOOD PH 7.36 (7.30-7.42)
[2017-12-13] MEDS ORDERED: LACTULOSE SYRUP 20 GM/30 ML UDCUP PO ONE (05:38)
[2017-12-13 05:59] LABS: INTERNATIONAL RATION (INR) 1.38; PROTHROMBIN TIME 17.8 SEC (11.4-15.4)
[2017-12-13 06:31] LABS: A TYPE INFLUENZA AG NEGATIVE (NEGATIVE); B INFLUENZA AG NEGATIVE (NEGATIVE)
[2017-12-13] MEDS ORDERED: DEXTROSE 50%-WATER 25 GM/50 ML DISP.SYRIN IV PRN ×2 (06:52)
[2017-12-13] MEDS ORDERED: MAG HYDROX/AL HYDROX/SIMETH SUSP 30 ML UDCUP PO PRN (06:52)
[2017-12-13] MEDS ORDERED: MAGNESIUM HYDROXIDE SUSP 30 ML UDCUP PO PRN (06:52)
[2017-12-13] MEDS ORDERED: DEXTROSE 40% GEL 15 GM TUBE PO PRN ×2 (06:52)
[2017-12-13] MEDS ORDERED: GLUCAGON,HUMAN RECOMB 1 MG INJ IM PRN (06:52)
--- NOTE | 2017-12-13 06:56 | RADIOLOGY REPORT (SQ) ---
EXAM DESCRIPTION: ABDOMEN 2 VIEWS CLINICAL HISTORY: nausea vomiting COMPARISON: 12/13/2017 FINDINGS: 2 views of the abdomen. No free intraperitoneal air. No dilated loops of large or small bowel. Moderate amount stool. Coarse calcifications overlying the expected region of the left kidney with 2 areas of calcification measuring 1.0 cm. No acute osseous abnormality. Leads overlie the abdomen. IMPRESSION: 1. Nonobstructive bowel gas pattern. 2. Left nephrolithiasis.
[2017-12-13] MEDS ORDERED: NORMAL SALINE 1000 ML 1,000 ML IV SCH (07:00)
[2017-12-13] MEDS ORDERED: MINERAL OIL ENEMA 133 ML PR PRN (07:56)
--- NOTE | 2017-12-13 08:07 | PDOC H&P ---
History of Present Illness Admission Date/PCP: 12/13/17 05:39 HENNY WINTERS MD Patient complains of: Abdominal and chest pain History of Present Illness: ZULAY CARMEN is a 46 year old male with a past medical history of aortic valve replacement on Coumadin, morbid obesity, diabetes and noncompliance. Patient states of the last 4 days he has had abdominal and chest pain associated with nausea and vomiting of gastric content. Patient admits to lifestyle noncompliance and dietary indiscretion. Declaring he eats cake and orange crush which she is currently drinking. Patient cannot recall all medications nor his last normal bowel movement. In the emergency room he has a glucose over 600 without acidosis and an abdominal series notable for constipation. He is referred to the hospitalist for admission Past Medical History Cardiac Medical History: Reports: Congestive Heart Failure - dificulty breathing when lying down, sleeps sitting up, HAS MECHANICAL AORTIC VALVE, Hyperlipidema, Hypertension Denies: Atrial Fibrillation, Coronary Artery Disease, Myocardial Infarction, Peripheral Vascular Disease, Heart Murmur Pulmonary Medical History: Denies: Asthma, Bronchitis, Chronic Obstructive Pulmonary Disease (COPD), Pneumonia, Tuberculosis Neurological Medical History: Reports: Migraine Denies: Seizures Endocrine Medical History: Reports: Diabetes Mellitus Type 2, Hypothyroidism Denies: Hyperthyroidism Renal/ Medical History: Denies: End Stage Renal Disease GI Medical History: Reports: Gastroesophageal Reflux Disease Musculoskeltal Medical History: Reports: Arthritis Denies: Fibromyalgia Psychiatric Medical History: Denies: Depression Hematology: Denies: Anemia Past Surgical History Past Surgical History: Reports: Cholecystectomy, Herniorrhaphy, Orthopedic Surgery - L ankle, Tonsillectomy Denies: Appendectomy, Gastric Bypass Surgery, Pacemaker Comment Only: Coronary Artery Bypass Graft - MECHANICAL VALVE PLACEMENT, Social History Information Source: Patient, H Records Smoking Status: Never Smoker Frequency of Alcohol Use: None Hx Recreational Drug Use: No Drugs: None Hx Prescription Drug Abuse: No - Advance Directive Resuscitation Status: Full Code Family History Family History: Reviewed & Not Pertinent, CAD, DM, Hyperlipidemia, Hypertension Parental Family History Reviewed: Yes Children Family History Reviewed: Yes Sibling(s) Family History Reviewed.: Yes Medication/Allergy Allergies/Adverse Reactions: No Known Allergies Allergy (Verified 11/17/17 15:38) Review of Systems Constitutional: PRESENT: as per HPI, fatigue, weight gain Eyes: ABSENT: visual disturbances Ears: ABSENT: hearing changes Cardiovascular: ABSENT: chest pain, dyspnea on exertion, edema, orthropnea, palpitations Respiratory: ABSENT: cough, hemoptysis Gastrointestinal: PRESENT: as per HPI, abdominal pain, bloating, constipation, nausea, vomiting Genitourinary: ABSENT: dysuria, hematuria Musculoskeletal: ABSENT: joint swelling Integumentary: ABSENT: rash, wounds Neurological: ABSENT: abnormal gait, abnormal speech, confusion, dizziness, focal weakness, syncope Psychiatric: PRESENT: as per HPI Endocrine: ABSENT: cold intolerance, heat intolerance, polydipsia, polyuria Hematologic/Lymphatic: ABSENT: easy bleeding, easy bruising Physical Exam Vital Signs: Temp Pulse Resp BP Pulse Ox 98.3 F 92 19 116/88 H 97 12/13/17 01:27 12/13/17 01:27 12/13/17 06:50 12/13/17 06:50 12/13/17 06:50 Intake & Output 12/11/17 12/12/17 12/13/17 11:59 11:59 11:59 Weight 121.5 kg General appearance: PRESENT: cooperative, mild distress, morbidly obese Head exam: PRESENT: atraumatic, normocephalic Eye exam: PRESENT: conjunctiva pink, EOMI, PERRLA. ABSENT: scleral icterus Ear exam: PRESENT: normal external ear exam Mouth exam: PRESENT: moist, tongue midline Neck exam: ABSENT: carotid bruit, JVD, lymphadenopathy, thyromegaly Respiratory exam: PRESENT: clear to auscultation claire. ABSENT: rales, rhonchi, wheezes Cardiovascular exam: PRESENT: RRR. ABSENT: diastolic murmur, rubs, systolic murmur Pulses: PRESENT: normal dorsalis pedis pul Vascular exam: PRESENT: normal capillary refill GI/Abdominal exam: PRESENT: distended, hypoactive bowel sounds, soft, tenderness. ABSENT: Williamson's sign, rebound Rectal exam: PRESENT: deferred Extremities exam: PRESENT: full ROM, +1 edema. ABSENT: calf tenderness, clubbing, pedal edema Neurological exam: PRESENT: alert, awake, oriented to person, oriented to place , oriented to time, oriented to situation, CN II-XII grossly intact. ABSENT: motor sensory deficit Psychiatric exam: PRESENT: appropriate affect, normal mood. ABSENT: homicidal ideation, suicidal ideation Skin exam: PRESENT: abrasion Results Impressions: Abdomen X-Ray 12/13/17 00:00 IMPRESSION: 1. Nonobstructive bowel gas pattern. 2. Left nephrolithiasis. Chest X-Ray 12/13/17 01:31 IMPRESSION: 1. No acute pulmonary process identified. Assessment & Plan - Diagnosis (1) Hyperglycemia Is this a current diagnosis for this admission?: Yes Plan: Without acidosis, IV fluids insulin and reevaluation of chemistry (2) Constipation Is this a current diagnosis for this admission?: Yes Plan: Lactulose and Fleet enema as needed (3) Chest pain Qualifiers: Chest pain type: unspecified Qualified Code(s): R07.9 - Chest pain, unspecified Is this a current diagnosis for this admission?: Yes Plan: Atypical chest pain though the patient's pain is atypical there are multiple risk factors for coronary artery disease and subsequently will observe and evaluation of acute coronary syndrome versus coronary artery disease with anginal equivalents. Cardiac monitoring blood pressure Q6 hours ,TSH, lipid profile, serial cardiac enzymes and consideration of cardiac stress test (4) History of mechanical aortic valve replacement Is this a current diagnosis for this admission?: Yes Plan: Subtherapeutic INR, continue Coumadin with Arixtra bridge - Time Time Spent: 50 to 70 Minutes - Inpatient Certification Medical Necessity: Need Close Monitoring Due to Risk of Patient Decompensation
[2017-12-13 08:52] LABS: CREATINE KINASE MB 0.37 ng/mL (<4.55)
[2017-12-13] MEDS ORDERED: MAGNESIUM HYDROXIDE SUSP 30 ML UDCUP PO ONE (09:00)
[2017-12-13 09:03] LABS: TROPONIN I < 0.012 ng/mL
[2017-12-13] MEDS ORDERED: INSULIN GLARGINE,HUM.REC.ANLOG 1,000 UNIT/10 ML UNIT SUBCUT SCH (10:00)
[2017-12-13] MEDS ORDERED: FONDAPARINUX SODIUM INJ 10 MG/0.8 ML DISP.SYRIN SUBCUT SCH (10:00)
--- NOTE | 2017-12-13 10:22 | Physician Advisory Note ---
Physician Advisor ProgressNote .: [place] [facility], I have reviewed the medical record for this patient. Physician Advisor Statement: Please consider documenting, if you agree: 1. "chronic diastolic CHF" Status: Medicare pt w/N/V/D/CP/abd pain/constipation, chronic noncompliance, multiple concerning baseline co-morbidities not well controlled, in w/evidence of significant intravascular volume depletion associated with severe hyperglycemia (w/attendant pseudo-hyponatremia). Has already spent 1 MN in hospital care, clearly attending expects he will need at least a 2nd MN of hospital eval/care/monitoring. Still has glc in 400s, after several liters of bolused IVF, attending has just ordered more IVF @250/hr. Multiple medical risks acutely. Only now moving him up from ice chips to clear liquids po, & we don't know how well he will tolerate that. Appropriate for Inpatient status in this case. CK
[2017-12-13] MEDS ORDERED: METOCLOPRAMIDE HCL INJ/PF 10 MG/2 ML SDV IV PRN (11:09)
[2017-12-13] MEDS ORDERED: ATORVASTATIN CALCIUM 80 MG TABLET PO SCH (11:15)
--- NOTE | 2017-12-13 11:26 | PDOC PROGRESS REPORT ---
Subjective Progress Note for:: 12/13/17 Subjective:: Patient relates that he had chest pain, palpitations and threw up around 15 times. At present time he is feeling hungry. He denies diarrhea. Review of systems All organ systems evaluated and negative except as in subjective All significant laboratories and diagnostics have been reviewed Reason For Visit: CP, ABD PAIN, HYPERGLYCEMIA, MORBID Physical Exam Vital Signs: Temp Pulse Resp BP Pulse Ox 97.9 F 78 20 122/86 H 100 12/13/17 10:42 12/13/17 10:42 12/13/17 10:42 12/13/17 10:42 12/13/17 10:42 Intake & Output 12/12/17 12/13/17 12/14/17 06:59 06:59 06:59 Intake Total 100 Balance 100 Weight 121.5 kg General appearance: PRESENT: cooperative, morbidly obese Head exam: PRESENT: atraumatic, normocephalic Eye exam: PRESENT: conjunctiva pink, EOMI, PERRLA Ear exam: PRESENT: normal external ear exam Mouth exam: PRESENT: moist Neck exam: PRESENT: full ROM. ABSENT: JVD, lymphadenopathy, tenderness Respiratory exam: PRESENT: clear to auscultation claire Cardiovascular exam: PRESENT: RRR. ABSENT: diastolic murmur, systolic murmur Vascular exam: PRESENT: normal capillary refill GI/Abdominal exam: PRESENT: normal bowel sounds Extremities exam: PRESENT: clubbing, full ROM. ABSENT: pedal edema Musculoskeletal exam: PRESENT: ambulatory Neurological exam: PRESENT: alert, awake, oriented to person, oriented to place , oriented to time, oriented to situation, CN II-XII grossly intact Psychiatric exam: PRESENT: appropriate affect, normal mood Skin exam: PRESENT: intact, normal color Results Laboratory Results: 12/13/17 12/13/17 07:58 07:58 Creatine Kinase 30 L CK-MB (CK-2) 0.37 Troponin I < 0.012 Impressions: Abdomen X-Ray 12/13/17 00:00 IMPRESSION: 1. Nonobstructive bowel gas pattern. 2. Left nephrolithiasis. Chest X-Ray 12/13/17 01:31 IMPRESSION: 1. No acute pulmonary process identified. Assessment & Plan - Diagnosis (1) Chest pain Qualifiers: Chest pain type: unspecified Qualified Code(s): R07.9 - Chest pain, unspecified Is this a current diagnosis for this admission?: Yes Plan: Appears to be musculoskeletal. (2) Hyperglycemia Is this a current diagnosis for this admission?: Yes Plan: We will continue IV fluids. Patient will be placed on Lantus, pre-meal Humalog and continue home Humalog sliding scale. Diet will be advanced to clear liquids (3) Dehydration Is this a current diagnosis for this admission?: Yes Plan: Is my opinion that situation relates to elevated blood sugar levels. Will continue with IV fluids and see if he is able to tolerate oral (4) Hypertensive disorder Qualifiers: Hypertension type: essential hypertension Qualified Code(s): I10 - Essential (primary) hypertension Is this a current diagnosis for this admission?: Yes Plan: Continue with outpatient regimen (5) Subtherapeutic international normalized ratio (INR) Is this a current diagnosis for this admission?: Yes Plan: Restart Coumadin and will bridge with Arixtra as on admission - Time Time Spent with patient: 15-24 minutes Medications reviewed and adjusted accordingly: Yes Anticipated discharge: Home Within: within 48 hours - Inpatient Certification Based on my medical assessment, after consideration of the patient's comorbidities, presenting symptoms, or acuity I expect that the services needed warrant INPATIENT care.: Yes Medical Necessity: Need Close Monitoring Due to Risk of Patient Decompensation, Need For IV Fluids, Need For Continuous Telemetry Monitoring
[2017-12-13] MEDS ORDERED: ASPIRIN 81 MG TABLET, ENT COATED PO SCH (12:00)
[2017-12-13] MEDS: INSULIN LISPRO 100 UNIT/ML 3 ML VIAL SUBCUT SCH ×2 (12:09→16:17)
[2017-12-13] MEDS: DOCUSATE SODIUM 100 MG CAPSULE PO SCH ×2 (12:09→17:48)
[2017-12-13] MEDS ORDERED: HEPARIN SOD (PORCINE) 5,000 UNIT/ML 1 ML SYRINGE SUBCUT SCH (14:00)
[2017-12-13 14:29] LABS: CREATINE KINASE MB 0.33 ng/mL (<4.55)
[2017-12-13 14:33] LABS: TROPONIN I < 0.012 ng/mL
[2017-12-13] MEDS: NORMAL SALINE 1000 ML 1,000 ML IV PRN ×2 (14:35→22:09)
[2017-12-13] MEDS: ACETAMINOPHEN 325 MG TABLET PO PRN (16:35)
[2017-12-13] MEDS ORDERED: ASPIRIN 81 MG TABLET, ENT COATED PO ONE (17:00)
[2017-12-13] MEDS: INSULIN GLARGINE,HUM.REC.ANLOG 1,000 UNIT/10 ML UNIT SUBCUT SCH (17:48)
[2017-12-13 19:54] LABS: CREATINE KINASE MB 0.26 ng/mL (<4.55)
[2017-12-13 20:06] LABS: TROPONIN I < 0.012 ng/mL
[2017-12-13] MEDS ORDERED: WARFARIN SODIUM 15 MG PO SCH (22:00)
[2017-12-13] MEDS ORDERED: WARFARIN SODIUM 3 MG TABLET PO SCH (22:00)
[2017-12-13] MEDS: INSULIN LISPRO 100 UNIT/ML 3 ML VIAL SUBCUT PRN (22:09)
[2017-12-13] MEDS: ATORVASTATIN CALCIUM 80 MG TABLET PO SCH (22:10)
[2017-12-14 06:10] LABS: ABSOLUTE BASOPHILS # (AUTO) 0.1 10^3/uL (0.0-0.2); ABSOLUTE EOSINOPHILS # (AUTO) 0.4 10^3/uL (0.0-0.6); ABSOLUTE LYMPHOCYTES (AUTO) 2.4 10^3/uL (0.5-4.7); ABSOLUTE MONOCYTES (AUTO) 0.5 10^3/uL (0.1-1.4); ABSOLUTE NEUT (AUTO) 6.1 10^3/uL (1.7-8.2); BASOPHILS % (AUTO) 0.5 % (0-2); EOSINOPHILS % (AUTO) 3.8 % (0-6); HEMATOCRIT 39.8 % (37.9-51.0); LYMPHOCYTES % (AUTO) 25.3 % (13-45); MEAN CORPUSCULAR HEMOGLOBIN 27.3 pg (27.0-33.4); MEAN CORPUSCULAR HGB CONC 33.9 g/dL (32.0-36.0); MEAN CORPUSCULAR VOLUME 81 fl (80-97); MONOCYTES % (AUTO) 5.2 % (3-13); PLATELET COUNT 117 10^3/uL (150-450); RED BLOOD COUNT 4.93 10^6/uL (4.35-5.55); RED CELL DISTRIBUTION WIDTH 15.1 % (11.5-14.0); SEGMENTED NEUTROPHILS % (AUTO) 65.2 % (42-78); TOTAL CELLS COUNTED % (AUTO) 100 %; WHITE BLOOD COUNT 9.4 10^3/uL (4.0-10.5)
[2017-12-14 06:20] LABS: INTERNATIONAL RATION (INR) 1.43; PROTHROMBIN TIME 18.4 SEC (11.4-15.4)
[2017-12-14 06:22] LABS: ANION GAP 5 (5-19); BLOOD UREA NITROGEN 14 mg/dL (7-20); CALCIUM 8.4 mg/dL (8.4-10.2); CARBON DIOXIDE 27 mmol/L (22-30); CHLORIDE 105 mmol/L (98-107); GLUCOSE 180 mg/dL (75-110); POTASSIUM 3.8 mmol/L (3.6-5.0); SODIUM 137.2 mmol/L (137-145)
[2017-12-14] MEDS: NORMAL SALINE 1000 ML 1,000 ML IV PRN ×2 (06:37→09:54)
[2017-12-14] MEDS: LEVOTHYROXINE SODIUM 0.05 MG TABLET PO SCH (06:37)
[2017-12-14 06:41] LABS: HEMOGLOBIN 13.5 g/dL (13.5-17.0)
[2017-12-14] MEDS: ACETAMINOPHEN 325 MG TABLET PO PRN (07:19)
[2017-12-14] MEDS: INSULIN GLARGINE,HUM.REC.ANLOG 1,000 UNIT/10 ML UNIT SUBCUT SCH ×2 (08:10→18:14)
[2017-12-14] MEDS: INSULIN LISPRO 100 UNIT/ML 3 ML VIAL SUBCUT SCH ×3 (08:10→18:09)
[2017-12-14] MEDS: INSULIN LISPRO 100 UNIT/ML 3 ML VIAL SUBCUT PRN ×3 (08:10→18:14)
[2017-12-14] MEDS ORDERED: WARFARIN SODIUM PO SCH (10:00)
[2017-12-14] MEDS: BENAZEPRIL HCL 5 MG TABLET PO SCH (10:11)
[2017-12-14] MEDS: FONDAPARINUX SODIUM INJ 10 MG/0.8 ML DISP.SYRIN SUBCUT SCH (10:12)
[2017-12-14] MEDS: OXYCODONE-ACETAMINOPHEN 5-325 MG TABLET PO PRN (10:23)
[2017-12-14] MEDS: DOCUSATE SODIUM 100 MG CAPSULE PO SCH ×2 (10:24→17:15)
[2017-12-14] MEDS: ASPIRIN 81 MG TABLET, ENT COATED PO SCH (10:24)
[2017-12-14] MEDS ORDERED: NORMAL SALINE 1000 ML 1,000 ML IV PRN (10:36)
--- NOTE | 2017-12-14 13:06 | PDOC PROGRESS REPORT ---
Subjective Progress Note for:: 12/14/17 Subjective:: Patient refers that feels better but is constantly hungry. Admits that he has lost around 100 pounds. He is also constantly thirsty Review of systems All organ systems evaluated and negative except as in subjective All significant laboratories and diagnostics have been reviewed Reason For Visit: DEHYDRATION,CHEST PAIN Physical Exam Vital Signs: Temp Pulse Resp BP Pulse Ox 97.4 F 63 20 97/51 L 96 12/14/17 03:54 12/14/17 03:54 12/14/17 03:54 12/14/17 03:54 12/14/17 03:54 Intake & Output 12/13/17 12/14/17 12/15/17 06:59 06:59 06:59 Intake Total 1750 Output Total 0 Balance 1750 Weight 121.5 kg 124.8 kg General appearance: PRESENT: no acute distress, cooperative, morbidly obese Head exam: PRESENT: atraumatic, normocephalic Eye exam: PRESENT: conjunctiva pink, EOMI, PERRLA Ear exam: PRESENT: normal external ear exam Mouth exam: PRESENT: moist Neck exam: PRESENT: full ROM, JVD. ABSENT: lymphadenopathy, tenderness Respiratory exam: PRESENT: clear to auscultation claire Cardiovascular exam: PRESENT: RRR. ABSENT: diastolic murmur, systolic murmur Vascular exam: PRESENT: normal capillary refill GI/Abdominal exam: PRESENT: normal bowel sounds, soft. ABSENT: tenderness Extremities exam: PRESENT: full ROM. ABSENT: pedal edema Musculoskeletal exam: PRESENT: ambulatory Neurological exam: PRESENT: alert, awake, oriented to person, oriented to place , oriented to time, oriented to situation, CN II-XII grossly intact Psychiatric exam: PRESENT: appropriate affect, normal mood Skin exam: PRESENT: intact, normal color Results Laboratory Results: 12/14/17 05:36 12/14/17 05:36 12/14/17 12/14/17 05:36 05:36 WBC 9.4 RBC 4.93 Hgb 13.5 D Hct 39.8 MCV 81 MCH 27.3 MCHC 33.9 RDW 15.1 H Plt Count 117 L Seg Neutrophils % 65.2 Lymphocytes % 25.3 Monocytes % 5.2 Eosinophils % 3.8 Basophils % 0.5 Absolute Neutrophils 6.1 Absolute Lymphocytes 2.4 Absolute Monocytes 0.5 Absolute Eosinophils 0.4 Absolute Basophils 0.1 Sodium 137.2 Potassium 3.8 Chloride 105 Carbon Dioxide 27 Anion Gap 5 BUN 14 Creatinine 0.70 Est GFR ( Amer) > 60 Est GFR (Non-Af Amer) > 60 Glucose 180 H Calcium 8.4 Magnesium 2.0 12/13/17 12/13/17 12/13/17 07:58 07:58 13:30 Creatine Kinase 30 L 29 L CK-MB (CK-2) 0.37 Troponin I < 0.012 12/13/17 12/13/17 12/13/17 13:30 19:00 19:00 Creatine Kinase 26 L CK-MB (CK-2) 0.33 0.26 Troponin I < 0.012 < 0.012 Impressions: Abdomen X-Ray 12/13/17 00:00 IMPRESSION: 1. Nonobstructive bowel gas pattern. 2. Left nephrolithiasis. Chest X-Ray 12/13/17 01:31 IMPRESSION: 1. No acute pulmonary process identified. Assessment & Plan - Diagnosis (1) Chest pain Qualifiers: Chest pain type: unspecified Qualified Code(s): R07.9 - Chest pain, unspecified Is this a current diagnosis for this admission?: Yes Plan: Appears to be musculoskeletal. (2) Hyperglycemia Is this a current diagnosis for this admission?: Yes Plan: Will discontinue IV fluids. Continue lantus, premeal Humalog and sliding scale. Consult dietitian. Patient informed about hemoglobin A1c and importance for following a diet and lifestyle modifications in order to avoid complications secondary to diabetes (3) Dehydration Is this a current diagnosis for this admission?: Yes Plan: Is my opinion that situation relates to elevated blood sugar levels. She is able to tolerate p.o. We will discontinue IV fluids and follow up response (4) Hypertensive disorder Qualifiers: Hypertension type: essential hypertension Qualified Code(s): I10 - Essential (primary) hypertension Is this a current diagnosis for this admission?: Yes Plan: Continue with outpatient regimen (5) Subtherapeutic international normalized ratio (INR) Is this a current diagnosis for this admission?: Yes Plan: Continue Coumadin as outpatient and trend while inhouse. - Time Time Spent with patient: 15-24 minutes Medications reviewed and adjusted accordingly: Yes Anticipated discharge: Home Within: within 24 hours - Inpatient Certification Based on my medical assessment, after consideration of the patient's comorbidities, presenting symptoms, or acuity I expect that the services needed warrant INPATIENT care.: Yes I certify that my determination is in accordance with my understanding of Medicare's requirements for reasonable and necessary INPATIENT services [42 CFR 412.3e].: Yes Medical Necessity: Need Close Monitoring Due to Risk of Patient Decompensation
[2017-12-14] MEDS ORDERED: ONDANSETRON HCL INJ/PF 4 MG/2 ML SDV ONE (15:57)
[2017-12-14] MEDS ORDERED: ONDANSETRON HCL INJ/PF 4 MG/2 ML SDV IV PRN (16:02)
[2017-12-14] MEDS: METOCLOPRAMIDE HCL 10 MG TABLET PO SCH ×2 (18:09→23:42)
[2017-12-14] MEDS ORDERED: WARFARIN SODIUM 3 MG TABLET PO SCH (22:00)
[2017-12-14] MEDS: ATORVASTATIN CALCIUM 80 MG TABLET PO SCH (23:42)
[2017-12-14] MEDS ORDERED: BUTALB/ACETAMINOPHEN/CAFFEINE 1 TAB EACH PO ONE (23:46)
[2017-12-14] MEDS ORDERED: MAGNESIUM SULFATE/D5W 1 GM/100 ML RTUPB IV ONE (23:47)
[2017-12-14] MEDS ORDERED: NORMAL SALINE 1000 ML 500 ML IV ONE (23:48)
[2017-12-14] MEDS ORDERED: DIPHENHYDRAMINE HCL 50 MG/ML VIAL IV ONE (23:50)
[2017-12-15] MEDS: LEVOTHYROXINE SODIUM 0.05 MG TABLET PO SCH (05:19)
[2017-12-15 06:10] LABS: INTERNATIONAL RATION (INR) 1.41; PROTHROMBIN TIME 18.1 SEC (11.4-15.4)
[2017-12-15 06:29] LABS: ANION GAP 6 (5-19); BLOOD UREA NITROGEN 8 mg/dL (7-20); CALCIUM 8.7 mg/dL (8.4-10.2); CARBON DIOXIDE 26 mmol/L (22-30); CHLORIDE 105 mmol/L (98-107); GLUCOSE 161 mg/dL (75-110); SODIUM 136.9 mmol/L (137-145)
[2017-12-15] MEDS: INSULIN LISPRO 100 UNIT/ML 3 ML VIAL SUBCUT SCH ×2 (08:16→12:54)
[2017-12-15] MEDS: OXYCODONE-ACETAMINOPHEN 5-325 MG TABLET PO PRN ×2 (08:16→15:21)
[2017-12-15] MEDS: METOCLOPRAMIDE HCL 10 MG TABLET PO SCH ×2 (08:16→12:54)
[2017-12-15] MEDS: INSULIN LISPRO 100 UNIT/ML 3 ML VIAL SUBCUT PRN ×2 (08:16→12:54)
[2017-12-15] MEDS: BENAZEPRIL HCL 5 MG TABLET PO SCH (09:33)
[2017-12-15] MEDS: INSULIN GLARGINE,HUM.REC.ANLOG 1,000 UNIT/10 ML UNIT SUBCUT SCH (09:33)
[2017-12-15] MEDS: FONDAPARINUX SODIUM INJ 10 MG/0.8 ML DISP.SYRIN SUBCUT SCH (09:33)
[2017-12-15] MEDS: ASPIRIN 81 MG TABLET, ENT COATED PO SCH (09:36)
[2017-12-15] MEDS: DOCUSATE SODIUM 100 MG CAPSULE PO SCH (09:36)
[2017-12-15] MEDS ORDERED: WARFARIN SODIUM 9 MG PO SCH (10:00)
[2017-12-15 14:29] VITALS: BP 106/71
--- NOTE | 2017-12-15 19:00 | PDOC DISCHARGE SUMMARY ---
General - Admit/Disc Date/PCP Admission Date/Primary Care Provider: 12/13/17 05:39 HENNY WINTERS MD Discharge Date: 12/15/17 - Discharge Diagnosis (1) Chest pain Is this a current diagnosis for this admission?: Yes (2) Diabetes mellitus with hyperglycemia Is this a current diagnosis for this admission?: Yes (3) Dehydration Is this a current diagnosis for this admission?: Yes (4) Hypertensive disorder Is this a current diagnosis for this admission?: Yes (5) Subtherapeutic international normalized ratio (INR) Is this a current diagnosis for this admission?: Yes (6) Nausea & vomiting Is this a current diagnosis for this admission?: Yes - Additional Information Resuscitation Status: Full Code Discharge Diet: Diabetic Discharge Activity: Activity As Tolerated Prescriptions: Insulin Glargine,Hum.rec.anlog [Lantus Insulin 100 Unit/1 ml 10 ml] 40 unit SUBCUT BID #3 unit Insulin Lispro [Humalog Insulin (Lispro) 100 unit/mL] 8 unit SUBCUT AC #3 unit Metoclopramide HCl [Reglan 10 mg Tablet] 5 mg PO ACHS #90 tablet Home Medications: Atorvastatin Calcium 10 mg PO QAM 12/13/17 Benazepril HCl [Benazepril HCl] 5 mg PO DAILY 12/13/17 Levothyroxine Sodium 50 mcg PO Q6AM 12/13/17 Metformin HCl 1,000 mg PO BID 12/13/17 Oxycodone HCl/Acetaminophen [Percocet 5-325 mg Tablet] 1 tab PO Q6HP PRN Warfarin Sodium [Coumadin 5 mg Tablet] 9 mg PO SUTUTHSA@1000 12/13/17 Warfarin Sodium [Coumadin 5 mg Tablet] 9.5 mg PO MOWEFR@1000 12/13/17 Insulin Glargine,Hum.rec.anlog [Lantus Insulin 100 Unit/1 ml 10 ml] 40 unit SUBCUT BID #3 unit 12/15/17 Insulin Lispro [Humalog Insulin (Lispro) 100 unit/mL] 8 unit SUBCUT AC #3 unit 12/15/17 Metoclopramide HCl [Reglan 10 mg Tablet] 5 mg PO ACHS #90 tablet 12/15/17 History of Present Illness History of Present Illness: ZULAY CARMEN is a 46 year old male with a past medical history of aortic valve replacement on Coumadin, morbid obesity, diabetes and noncompliance. Patient states of the last 4 days he has had abdominal and chest pain associated with nausea and vomiting of gastric content. Patient reported to lifestyle noncompliance and dietary indiscretion. He declared he eats cake and orange crush which he was drinking during intake. Patient was not able to recall all medications nor his last normal bowel movement. In the emergency room he has a glucose over 600 without acidosis and an abdominal series notable for constipation. He was referred to the hospitalist for admission Hospital Course Hospital Course: Patient was admitted under hospitalist service. He was administered IV fluids aggressively in order to control hyperglycemia. Patient was placed on long- acting, pre-meal Humalog and was cover with Humalog sliding scale with further improvement. His hemoglobin A1c was 14. Patient was educated by community nutrition educator prior to discharge regarding the use of insulin as well as diet. The patient was placed on Reglan as there is a possibility that patient does have an element of gastroparesis secondary to diabetes. Chest pain was deemed to be noncardiac since primarily was precipitated by recurrent bouts of vomiting. He was encouraged as to continue taking metformin as outpatient. PT and INR was trended and continued to be subtherapeutic. He was advised as to take Coumadin 10 mgs On Tuesday and Tuesday and to follow-up with his primary care provider for a PT and INR. Since patient had achieved maximum benefit of hospitalization stay prompted to discharge under stable condition Physical Exam Vital Signs: Temp Pulse Resp BP Pulse Ox 98.5 F 66 20 106/57 L 97 12/15/17 03:28 12/15/17 03:28 12/15/17 03:28 12/15/17 03:28 12/15/17 03:28 Intake & Output 12/14/17 12/15/17 12/16/17 06:59 06:59 06:59 Intake Total 1750 1352 Output Total 0 Balance 1750 1352 Weight 124.8 kg 124.8 kg General appearance: PRESENT: no acute distress, cooperative, morbidly obese Head exam: PRESENT: atraumatic, normocephalic Eye exam: PRESENT: conjunctiva pink, EOMI, PERRLA Ear exam: PRESENT: normal external ear exam Mouth exam: PRESENT: moist, neck supple Neck exam: PRESENT: full ROM, JVD. ABSENT: lymphadenopathy, tenderness Respiratory exam: PRESENT: clear to auscultation claire Cardiovascular exam: PRESENT: RRR. ABSENT: diastolic murmur, systolic murmur Vascular exam: PRESENT: normal capillary refill GI/Abdominal exam: PRESENT: normal bowel sounds, soft. ABSENT: tenderness Extremities exam: PRESENT: full ROM. ABSENT: joint swelling, pedal edema Musculoskeletal exam: PRESENT: ambulatory, full ROM Neurological exam: PRESENT: alert, awake, oriented to person, oriented to place , oriented to time, oriented to situation, CN II-XII grossly intact Psychiatric exam: PRESENT: appropriate affect, normal mood Skin exam: PRESENT: intact, normal color Results Laboratory Results: 12/14/17 05:36 12/15/17 05:20 12/15/17 05:20 Sodium 136.9 L Potassium 4.0 Chloride 105 Carbon Dioxide 26 Anion Gap 6 BUN 8 Creatinine 0.61 Est GFR ( Amer) > 60 Est GFR (Non-Af Amer) > 60 Glucose 161 H Calcium 8.7 12/13/17 12/13/17 12/13/17 07:58 07:58 13:30 Creatine Kinase 30 L 29 L CK-MB (CK-2) 0.37 Troponin I < 0.012 12/13/17 12/13/17 12/13/17 13:30 19:00 19:00 Creatine Kinase 26 L CK-MB (CK-2) 0.33 0.26 Troponin I < 0.012 < 0.012 Impressions: Abdomen X-Ray 12/13/17 00:00 IMPRESSION: 1. Nonobstructive bowel gas pattern. 2. Left nephrolithiasis. Chest X-Ray 12/13/17 01:31 IMPRESSION: 1. No acute pulmonary process identified. Plan Discharge Plan: Discharge home Time Spent: Less than 30 Minutes
== END 2017-12-15 15:37 | disposition home or self-care (01) | DRG 638 ==
LOC: ER 21:27 → EH 12-13 05:39 → OBSVTOIN 12-13 05:39 → 3W 12-13 10:36
PROVIDERS: ADMIT Internal Medicine; ATTEND Internal Medicine
DX: E11.65 Type 2 diabetes mellitus with hyperglycemia (principal); Z68.43 Body mass index [BMI] 50.0-59.9, adult; E86.0 Dehydration; I10 Essential (primary) hypertension; E66.01 Morbid (severe) obesity due to excess calories; E11.43 Type 2 diabetes mellitus with diabetic autonomic (poly)neuropathy; K31.84 Gastroparesis; G43.909 Migraine, unspecified, not intractable, without status migrainosus; E03.9 Hypothyroidism, unspecified; K21.9 Gastro-esophageal reflux disease without esophagitis; M19.90 Unspecified osteoarthritis, unspecified site; K59.00 Constipation, unspecified; R79.1 Abnormal coagulation profile; E78.00 Pure hypercholesterolemia, unspecified; Z79.4 Long term (current) use of insulin; Z79.899 Other long term (current) drug therapy; Z79.01 Long term (current) use of anticoagulants; Z95.2 Presence of prosthetic heart valve; Z91.19 Patient's noncompliance with other medical treatment and regimen; Z90.49 Acquired absence of other specified parts of digestive tract; Z82.49 Family history of ischemic heart disease and other diseases of the circulatory system; Z83.3 Family history of diabetes mellitus
CPT/HCPCS: 36415; 71046; 74019; 80048; 80053; 82550; 82553; 82803; 82962; 83036; 83690; 83735; 84484; 85025; 85610; 87070; 87804; 87880; 93005; 93010; 96360; 96361; 99291; J1200; J1652; J1815; J2405; J3475; J3490; J7030; S0119

== ENCOUNTER → 2017-12-12 | Outpatient (CLI) | payer MEDICARE, MEDICAID | LOC: OD 08:09 | PROVIDERS: ATTEND Family Medicine Geriatric Medicine | DX: I49.5 Sick sinus syndrome (principal); Z95.2 Presence of prosthetic heart valve | CPT/HCPCS: 36415; 85610 ==

== ENCOUNTER → 2018-01-03 | Outpatient (CLI) | payer MEDICARE, MEDICAID ==
[2018-01-03 09:14] LABS: INTERNATIONAL RATION (INR) 1.48; PROTHROMBIN TIME 18.8 SEC (11.4-15.4)
== END ==
LOC: OD 07:50
PROVIDERS: ATTEND Family Medicine Geriatric Medicine
DX: I49.5 Sick sinus syndrome (principal); Z95.2 Presence of prosthetic heart valve
CPT/HCPCS: 36415; 85610

== ENCOUNTER → 2018-01-25 | Outpatient (CLI) | payer MEDICARE, MEDICAID ==
[2018-01-25 09:09] LABS: ABSOLUTE EOSINOPHILS # (AUTO) 0.2 10^3/uL (0.0-0.6); ABSOLUTE LYMPHOCYTES (AUTO) 1.6 10^3/uL (0.5-4.7); ABSOLUTE MONOCYTES (AUTO) 0.5 10^3/uL (0.1-1.4); ABSOLUTE NEUT (AUTO) 5.1 10^3/uL (1.7-8.2); BASOPHILS % (AUTO) 0.4 % (0-2); EOSINOPHILS % (AUTO) 2.8 % (0-6); HEMATOCRIT 42.7 % (37.9-51.0); HEMOGLOBIN 14.1 g/dL (13.5-17.0); LYMPHOCYTES % (AUTO) 21.4 % (13-45); MEAN CORPUSCULAR HEMOGLOBIN 27.2 pg (27.0-33.4); MEAN CORPUSCULAR HGB CONC 33.1 g/dL (32.0-36.0); MEAN CORPUSCULAR VOLUME 82 fl (80-97); MONOCYTES % (AUTO) 6.4 % (3-13); PLATELET COUNT 158 10^3/uL (150-450); RED BLOOD COUNT 5.19 10^6/uL (4.35-5.55); RED CELL DISTRIBUTION WIDTH 14.3 % (11.5-14.0); TOTAL CELLS COUNTED % (AUTO) 100 %; WHITE BLOOD COUNT 7.4 10^3/uL (4.0-10.5)
[2018-01-25 09:39] LABS: ALANINE AMINOTRANSFERASE 26 U/L (21-72); ALBUMIN 3.9 g/dL (3.5-5.0); ALKALINE PHOSPHATASE 71 U/L (38-126); ANION GAP 9 (5-19); ASPARTATE AMINO TRANSFERASE 21 U/L (17-59); BILIRUBIN,DIRECT 0.4 mg/dL (0.0-0.4); BILIRUBIN,TOTAL 0.8 mg/dL (0.2-1.3); BLOOD UREA NITROGEN 9 mg/dL (7-20); CALCIUM 9.4 mg/dL (8.4-10.2); CARBON DIOXIDE 28 mmol/L (22-30); CHLORIDE 105 mmol/L (98-107); CHOLESTEROL 129.28 mg/dL (0-200); GLUCOSE 132 mg/dL (75-110); POTASSIUM 4.6 mmol/L (3.6-5.0); SODIUM 142.2 mmol/L (137-145); TOTAL PROTEIN 6.8 g/dL (6.3-8.2); TRIGLYCERIDES 71 mg/dL (<150)
[2018-01-25 09:50] LABS: DIRECT LDL 82 mg/dL (<100)
[2018-01-26 09:39] LABS: CREATININE URINE 91.4 mg/dL (Not Estab.); MICROALBUMIN URINE 71.9 ug/mL (Not Estab.)
== END ==
LOC: OD 07:43
PROVIDERS: ATTEND Family Medicine Geriatric Medicine
DX: E11.65 Type 2 diabetes mellitus with hyperglycemia (principal); Z95.2 Presence of prosthetic heart valve; N40.1 Benign prostatic hyperplasia with lower urinary tract symptoms; I35.0 Nonrheumatic aortic (valve) stenosis; Z79.899 Other long term (current) drug therapy
CPT/HCPCS: 36415; 80053; 80061; 82043; 82570; 83036; 84153; 84443; 85025; 85610

== ENCOUNTER → 2018-02-01 | Outpatient (CLI) | payer MEDICARE, MEDICAID ==
[2018-02-01 10:32] LABS: INTERNATIONAL RATION (INR) 1.96; PROTHROMBIN TIME 23.2 SEC (11.4-15.4)
== END ==
LOC: OD 08:29
PROVIDERS: ATTEND Family Medicine Geriatric Medicine
DX: I49.5 Sick sinus syndrome (principal); Z95.2 Presence of prosthetic heart valve
CPT/HCPCS: 36415; 85610

== ENCOUNTER → 2018-02-07 | Outpatient (CLI) | payer MEDICARE, MEDICAID ==
[2018-02-07 10:18] LABS: INTERNATIONAL RATION (INR) 2.23; PROTHROMBIN TIME 25.9 SEC (11.4-15.4)
== END ==
LOC: OD 09:08
PROVIDERS: ATTEND Family Medicine Geriatric Medicine
DX: I49.5 Sick sinus syndrome (principal); Z95.2 Presence of prosthetic heart valve
CPT/HCPCS: 36415; 85610

== ENCOUNTER → 2018-02-15 | Outpatient (CLI) | payer MEDICARE, MEDICAID ==
[2018-02-15 07:53] LABS: INTERNATIONAL RATION (INR) 2.17; PROTHROMBIN TIME 25.2 SEC (11.4-15.4)
== END ==
LOC: OD 07:25
PROVIDERS: ATTEND Family Medicine Geriatric Medicine
DX: Z51.81 Encounter for therapeutic drug level monitoring (principal); Z95.2 Presence of prosthetic heart valve; Z79.01 Long term (current) use of anticoagulants
CPT/HCPCS: 36415; 85610

== ENCOUNTER → 2018-02-22 | Outpatient (CLI) | payer MEDICARE, MEDICAID ==
[2018-02-22 09:21] LABS: INTERNATIONAL RATION (INR) 1.92; PROTHROMBIN TIME 22.9 SEC (11.4-15.4)
== END ==
LOC: OD 07:48
PROVIDERS: ATTEND Family Medicine Geriatric Medicine
DX: I49.5 Sick sinus syndrome (principal); Z95.2 Presence of prosthetic heart valve
CPT/HCPCS: 36415; 85610

== ENCOUNTER → 2018-03-13 | Outpatient (CLI) | payer MEDICARE, MEDICAID ==
[2018-03-13 09:07] LABS: INTERNATIONAL RATION (INR) 2.38; PROTHROMBIN TIME 27.1 SEC (11.4-15.4)
== END ==
LOC: OD 07:40
PROVIDERS: ATTEND Family Medicine Geriatric Medicine
DX: I48.0 Paroxysmal atrial fibrillation (principal); Z95.2 Presence of prosthetic heart valve
CPT/HCPCS: 36415; 85610

== ENCOUNTER → 2018-03-21 | Outpatient (CLI) | payer MEDICARE, MEDICAID ==
[2018-03-21 09:04] LABS: INTERNATIONAL RATION (INR) 2.88; PROTHROMBIN TIME 31.5 SEC (11.4-15.4)
== END ==
LOC: OD 07:14
PROVIDERS: ATTEND Family Medicine Geriatric Medicine
DX: I49.5 Sick sinus syndrome (principal); Z95.2 Presence of prosthetic heart valve
CPT/HCPCS: 36415; 85610

== ENCOUNTER → 2018-04-05 | Outpatient (CLI) | payer MEDICARE, MEDICAID ==
[2018-04-05 09:50] LABS: INTERNATIONAL RATION (INR) 2.12; PROTHROMBIN TIME 24.8 SEC (11.4-15.4)
== END ==
LOC: OD 08:02
PROVIDERS: ATTEND Family Medicine Geriatric Medicine
DX: Z95.2 Presence of prosthetic heart valve (principal); I49.5 Sick sinus syndrome
CPT/HCPCS: 36415; 85610

== ENCOUNTER → 2018-04-19 | Outpatient (CLI) | payer MEDICARE, MEDICAID ==
[2018-04-19 08:25] LABS: INTERNATIONAL RATION (INR) 1.12
== END ==
LOC: OD 07:25
PROVIDERS: ATTEND Family Medicine Geriatric Medicine
DX: I49.5 Sick sinus syndrome (principal); Z95.2 Presence of prosthetic heart valve
CPT/HCPCS: 36415; 85610

== ENCOUNTER → 2018-05-05 | Outpatient (CLI) | payer MEDICARE, MEDICAID ==
[2018-05-05 11:14] LABS: PROTHROMBIN TIME 22.7 SEC (11.4-15.4)
== END ==
LOC: OD 09:59
PROVIDERS: ATTEND Family Medicine Geriatric Medicine
DX: I49.5 Sick sinus syndrome (principal); Z95.2 Presence of prosthetic heart valve
CPT/HCPCS: 36415; 85610

== ENCOUNTER → 2018-05-23 | Outpatient (CLI) | payer MEDICARE, MEDICAID ==
--- NOTE | 2018-05-23 15:52 | RADIOLOGY REPORT (SQ) ---
EXAM DESCRIPTION: CHEST 2 VIEWS COMPLETED DATE/TIME: 05/23/2018 3:37 pm REASON FOR STUDY: ACUTE BRONCHITIS, UNSPECIFIED COMPARISON: December 2017 EXAM PARAMETERS: NUMBER OF VIEWS: two views TECHNIQUE: Digital Frontal and Lateral radiographic views of the chest acquired. RADIATION DOSE: NA LIMITATIONS: none FINDINGS: LUNGS AND PLEURA: No opacities, masses or pneumothorax. No pleural effusion. MEDIASTINUM AND HILAR STRUCTURES: No masses or contour abnormalities. HEART AND VASCULAR STRUCTURES: Heart normal size. No evidence for failure. BONES: No acute findings. HARDWARE: Patient is status post median sternotomy with valvular replacement. OTHER: No other significant finding. IMPRESSION: NO ACUTE RADIOGRAPHIC FINDING IN THE CHEST. TECHNICAL DOCUMENTATION: JOB ID: [id number] [employer]- All Rights Reserved Reading location - IP/workstation name: [email or web address]
== END ==
LOC: RAD 15:23
PROVIDERS: ATTEND Family Medicine Geriatric Medicine
DX: J20.9 Acute bronchitis, unspecified (principal)
CPT/HCPCS: 71046

== ENCOUNTER → 2018-06-02 | Outpatient (CLI) | payer MEDICARE, MEDICAID ==
[2018-06-02 11:17] LABS: INTERNATIONAL RATION (INR) 1.55; PROTHROMBIN TIME 19.3 SEC (11.4-15.4)
[2018-06-02 11:32] LABS: ANION GAP 11 (5-19); BLOOD UREA NITROGEN 9 mg/dL (7-20); CARBON DIOXIDE 27 mmol/L (22-30); CHLORIDE 104 mmol/L (98-107); GLUCOSE 203 mg/dL (75-110); POTASSIUM 4.2 mmol/L (3.6-5.0); SODIUM 141.6 mmol/L (137-145)
[2018-06-03 11:38] LABS: CREATININE URINE 119.8 mg/dL (Not Estab.); MICROALBUMIN URINE 47.1 ug/mL (Not Estab.)
== END ==
LOC: OD 10:10
PROVIDERS: ATTEND Family Medicine
DX: E11.65 Type 2 diabetes mellitus with hyperglycemia (principal); E11.29 Type 2 diabetes mellitus with other diabetic kidney complication; Z95.2 Presence of prosthetic heart valve
CPT/HCPCS: 36415; 80048; 82043; 82570; 83036; 85610

== ENCOUNTER → 2018-06-09 | Outpatient (CLI) | payer MEDICARE, MEDICAID ==
[2018-06-09 10:51] LABS: INTERNATIONAL RATION (INR) 1.04; PROTHROMBIN TIME 14.1 SEC (11.4-15.4)
== END ==
LOC: OD 10:04
PROVIDERS: ATTEND Family Medicine Geriatric Medicine
DX: I49.5 Sick sinus syndrome (principal); Z95.2 Presence of prosthetic heart valve
CPT/HCPCS: 36415; 85610

== ENCOUNTER → 2018-06-15 | Outpatient (CLI) | payer MEDICARE, MEDICAID ==
[2018-06-15 12:08] LABS: INTERNATIONAL RATION (INR) 1.87
[2018-06-15 12:18] LABS: PROTHROMBIN TIME 22.4 SEC (11.4-15.4)
== END ==
LOC: OD 10:45
PROVIDERS: ATTEND Family Medicine Geriatric Medicine
DX: I49.5 Sick sinus syndrome (principal); Z95.2 Presence of prosthetic heart valve
CPT/HCPCS: 36415; 85610

== ENCOUNTER → 2018-08-28 | Outpatient (CLI) | payer MEDICARE, MEDICAID ==
[2018-08-28 08:57] LABS: ABSOLUTE EOSINOPHILS # (AUTO) 0.3 10^3/uL (0.0-0.6); ABSOLUTE LYMPHOCYTES (AUTO) 1.4 10^3/uL (0.5-4.7); ABSOLUTE MONOCYTES (AUTO) 0.6 10^3/uL (0.1-1.4); ABSOLUTE NEUT (AUTO) 7.5 10^3/uL (1.7-8.2); BASOPHILS % (AUTO) 0.3 % (0-2); EOSINOPHILS % (AUTO) 3.1 % (0-6); HEMATOCRIT 43.8 % (37.9-51.0); LYMPHOCYTES % (AUTO) 13.9 % (13-45); MEAN CORPUSCULAR HEMOGLOBIN 27.1 pg (27.0-33.4); MEAN CORPUSCULAR HGB CONC 34.2 g/dL (32.0-36.0); MEAN CORPUSCULAR VOLUME 79 fl (80-97); MONOCYTES % (AUTO) 6.4 % (3-13); PLATELET COUNT 138 10^3/uL (150-450); RED BLOOD COUNT 5.54 10^6/uL (4.35-5.55); RED CELL DISTRIBUTION WIDTH 14.8 % (11.5-14.0); SEGMENTED NEUTROPHILS % (AUTO) 76.3 % (42-78); TOTAL CELLS COUNTED % (AUTO) 100 %; WHITE BLOOD COUNT 9.8 10^3/uL (4.0-10.5)
[2018-08-28 09:25] LABS: ALANINE AMINOTRANSFERASE 27 U/L (21-72); ALBUMIN 4.2 g/dL (3.5-5.0); ALKALINE PHOSPHATASE 121 U/L (38-126); ANION GAP 12 (5-19); ASPARTATE AMINO TRANSFERASE 23 U/L (17-59); BILIRUBIN,DIRECT 0.3 mg/dL (0.0-0.4); BLOOD UREA NITROGEN 15 mg/dL (7-20); CALCIUM 9.5 mg/dL (8.4-10.2); CARBON DIOXIDE 27 mmol/L (22-30); CHLORIDE 93 mmol/L (98-107); CHOLESTEROL 175.25 mg/dL (0-200); POTASSIUM 4.4 mmol/L (3.6-5.0); SODIUM 132.3 mmol/L (137-145); TOTAL PROTEIN 7.2 g/dL (6.3-8.2); TRIGLYCERIDES 468 mg/dL (<150)
[2018-08-28 09:36] LABS: DIRECT LDL 65 mg/dL (<100)
[2018-08-28 09:45] LABS: GLUCOSE 466 mg/dL (75-110)
[2018-08-29 13:37] LABS: CREATININE URINE 31.4 mg/dL (Not Estab.); MICROALBUMIN URINE 45.9 ug/mL (Not Estab.)
== END ==
LOC: OD 07:33
PROVIDERS: ATTEND Internal Medicine
DX: E11.9 Type 2 diabetes mellitus without complications (principal); E78.5 Hyperlipidemia, unspecified; R10.9 Unspecified abdominal pain; E03.9 Hypothyroidism, unspecified; D64.9 Anemia, unspecified; G62.9 Polyneuropathy, unspecified
CPT/HCPCS: 36415; 80053; 80061; 82043; 82570; 83036; 84443; 85025

== ENCOUNTER → 2018-09-21 | Outpatient (CLI) | payer MEDICARE, MEDICAID ==
[2018-09-21 10:06] LABS: CHOLESTEROL 151.72 mg/dL (0-200); TRIGLYCERIDES 285 mg/dL (<150)
[2018-09-21 10:18] LABS: DIRECT LDL 83 mg/dL (<100)
== END ==
LOC: OD 09:07
PROVIDERS: ATTEND Internal Medicine
DX: E11.9 Type 2 diabetes mellitus without complications (principal); E78.5 Hyperlipidemia, unspecified; E03.9 Hypothyroidism, unspecified
CPT/HCPCS: 36415; 80061; 83036; 84443

== ENCOUNTER → 2019-07-18 | Outpatient (CLI) | payer MEDICARE, MEDICAID ==
[2019-07-18 08:37] LABS: ANION GAP 12 (5-19); BLOOD UREA NITROGEN 12 mg/dL (7-20); CALCIUM 9.8 mg/dL (8.4-10.2); CARBON DIOXIDE 26 mmol/L (22-30); CHLORIDE 96 mmol/L (98-107); GLUCOSE 393 mg/dL (75-110); POTASSIUM 4.3 mmol/L (3.6-5.0)
[2019-07-19 10:37] LABS: CREATININE URINE 57.8 mg/dL (Not Estab.); MICROALBUMIN URINE 22.3 ug/mL (Not Estab.)
== END ==
LOC: OD 07:39
PROVIDERS: ATTEND Family Medicine
DX: E11.29 Type 2 diabetes mellitus with other diabetic kidney complication (principal); E03.9 Hypothyroidism, unspecified
CPT/HCPCS: 36415; 80048; 82043; 82570; 83036; 84443

== ENCOUNTER → 2019-12-17 | Outpatient (CLI) | payer OTHER ==
--- NOTE | 2019-12-20 15:26 | Pulmonary Function Test ---
Pulmonary Function Test Date of Procedure:: 12/17/19 INDICATION:: Dyspnea Referring Provider: Corie Gomes Manager Track: Chloe Quintanilla, DEVELOPMENTAL SERVICES WORKER, DISTRIBUTION SALES REPRESENTATIVE - Report Spirometry: Spirometry: pre-FVC:[3.56 L 72%] pre-FEV:1[2.94 L 73%] pre-FEV1/FVC %:[82] predicted: [81] [id number]:[3.31 L 81%] Impression: No obstructive ventilatory defect. Restrictive defect is implied by the de crease in flow at FVC. Restrictive defect cannot be diagnosed on the basis of spirometry alone. If clinically indicated complete pulmonary function test would be warranted.
== END ==
LOC: RT 11:11
DX: R06.02 Shortness of breath (principal); I10 Essential (primary) hypertension; E11.9 Type 2 diabetes mellitus without complications
CPT/HCPCS: 94010

== ENCOUNTER 2020-01-16 11:21 | Emergency (ER) | payer MEDICARE, MEDICAID ==
[2020-01-16] MEDS ORDERED: NORMAL SALINE 1000 ML 1,000 ML IV ONE ×2 (12:10→16:10)
[2020-01-16] MEDS ORDERED: ONDANSETRON HCL INJ/PF 4 MG/2 ML SDV IV ONE (12:10)
--- NOTE | 2020-01-16 12:10 | ER Document Report ---
ED Medical Screen (RME) - General Chief Complaint: Headache Stated Complaint: HEADACHE Time Seen by Provider: 01/16/20 12:05 Primary Care Provider: RYAN GOMES MD [Primary Care Provider] - Follow up as needed Mode of Arrival: Wheelchair Information source: Patient Notes: 49-year-old male presented to ED for complaint of severe headache. He states this is a 5 out of 5. He states is been about 3-1/2 weeks. He states he used to get oxycodone for his headaches and now gets Tylenol. He does have a history of migraines diabetes hypothyroid high blood pressure cholesterol and a mechanical aortic valve replacement. He is alert oriented respirations regular nonlabored speaking in full sentences. He states the headache is in different places every day. He is on Coumadin for his heart valve replacement when the last time he had a hit head CT. He states he is doing up everything he eats or drinks. I have greeted and performed a rapid initial assessment of this patient. A comprehensive ED assessment and evaluation of the patient, analysis of test results and completion of medical decision making process will be conducted by an additional ED providers. TRAVEL OUTSIDE OF THE [place] IN LAST 30 DAYS: No - Related Data Allergies/Adverse Reactions: No Known Allergies Allergy (Verified 01/16/20 12:07) Past Medical History - Social History Family history: Reviewed & Not Pertinent - Past Medical History Cardiac Medical History: Reports: Hx Congestive Heart Failure - dificulty breathing when lying down, sleeps sitting up, HAS MECHANICAL AORTIC VALVE, Hx Hypercholesterolemia, Hx Hypertension Denies: Hx Atrial Fibrillation, Hx Coronary Artery Disease, Hx Heart Attack, Hx Peripheral Vascular Disease, Hx Heart Murmur Pulmonary Medical History: Denies: Hx Asthma, Hx Bronchitis, Hx COPD, Hx Pneumonia, Hx Tuberculosis Neurological Medical History: Reports: Hx Migraine. Denies: Hx Cerebrovascular Accident, Hx Seizures Endocrine Medical History: Reports: Hx Diabetes Mellitus Type 2, Hx Hypothyroidism. Denies: Hx Graves' Disease, Hx Hyperthyroidism Renal/ Medical History: Reports: Hx Kidney Stones. Denies: Hx Benign Prostatic Hyperplasia, Hx End Stage Renal Disease, Hx Peritoneal Dialysis GI Medical History: Reports: Hx Gastroesophageal Reflux Disease Musculoskeltal Medical History: Reports Hx Arthritis, Denies Hx Fibromyalgia, Denies Hx Muscular Dystrophy, Reports Hx Musculoskeletal Deformity, Reports Hx Musculoskeletal Trauma, Denies Hx Systemic Lupus Erythematosus Skin Medical History: Denies Hx MRSA Psychiatric Medical History: Denies: Hx Depression Traumatic Medical History: Reports: Hx Fractures Past Surgical History: Reports: Hx Cardiac Surgery - aortic bicuspid valve, replaced with mechanical valve, Hx Cholecystectomy, Hx Herniorrhaphy, Hx Kidney (Renal Surgery), Hx Orthopedic Surgery - L ankle, Hx Tonsillectomy. Denies: Hx Appendectomy, Hx Bowel Surgery, Hx Gastric Bypass Surgery, Hx Pacemaker. Comment Only: Hx Coronary Artery Bypass Graft - MECHANICAL VALVE PLACEMENT, - Immunizations Immunizations up to date: Yes Hx Diphtheria, Pertussis, Tetanus Vaccination: No Physical Exam - Vital signs Vitals: Temp Pulse Resp BP Pulse Ox 97.5 F 93 22 H 109/78 97 01/16/20 11:33 01/16/20 11:33 01/16/20 11:33 01/16/20 11:33 01/16/20 11:33 Course - Vital Signs Vital signs: Temp Pulse Resp BP Pulse Ox 97.5 F 93 22 H 109/78 97 01/16/20 11:33 01/16/20 11:33 01/16/20 11:33 01/16/20 11:33 01/16/20 11:33 Doctor's Discharge - Discharge Referrals: RYAN GOMES MD [Primary Care Provider] - Follow up as needed
[2020-01-16 12:35] LABS: ABSOLUTE EOSINOPHILS # (AUTO) 0.1 10^3/uL (0.0-0.6); ABSOLUTE LYMPHOCYTES (AUTO) 1.8 10^3/uL (0.5-4.7); ABSOLUTE MONOCYTES (AUTO) 0.4 10^3/uL (0.1-1.4); ABSOLUTE NEUT (AUTO) 9.1 10^3/uL (1.7-8.2); BASOPHILS % (AUTO) 0.3 % (0-2); EOSINOPHILS % (AUTO) 0.9 % (0-6); HEMATOCRIT 50.7 % (37.9-51.0); HEMOGLOBIN 17.2 g/dL (13.5-17.0); LYMPHOCYTES % (AUTO) 15.8 % (13-45); MEAN CORPUSCULAR HEMOGLOBIN 27.5 pg (27.0-33.4); MEAN CORPUSCULAR HGB CONC 33.9 g/dL (32.0-36.0); MEAN CORPUSCULAR VOLUME 81 fl (80-97); MONOCYTES % (AUTO) 3.8 % (3-13); PLATELET COUNT 171 10^3/uL (150-450); RED BLOOD COUNT 6.24 10^6/uL (4.35-5.55); RED CELL DISTRIBUTION WIDTH 14.2 % (11.5-14.0); SEGMENTED NEUTROPHILS % (AUTO) 79.2 % (42-78); TOTAL CELLS COUNTED % (AUTO) 100 %; WHITE BLOOD COUNT 11.5 10^3/uL (4.0-10.5)
[2020-01-16 12:42] LABS: APPEARANCE,URINE CLEAR; BILIRUBIN,URINE NEGATIVE (NEGATIVE); COLOR,URINE YELLOW; GLUCOSE, URINE >=500 mg/dL (NEGATIVE); KETONES,URINE 80 mg/dL (NEGATIVE); PROTEIN,URINE NEGATIVE (NEGATIVE); URINE SPECIFIC GRAVITY 1.032; UROBILINOGEN,URINE NEGATIVE mg/dL (<2.0)
[2020-01-16 12:50] LABS: INTERNATIONAL RATION (INR) 1.18; PROTHROMBIN TIME 15.1 SEC (11.4-15.4)
[2020-01-16 12:53] LABS: RBC,URINE RARE /HPF
[2020-01-16 13:00] LABS: ALBUMIN 5.2 g/dL (3.5-5.0); TOTAL PROTEIN 8.6 g/dL (6.3-8.2)
[2020-01-16 13:01] LABS: ALKALINE PHOSPHATASE 105 U/L (38-126); ASPARTATE AMINO TRANSFERASE 32 U/L (17-59); BILIRUBIN,DIRECT 0.3 mg/dL (0.0-0.4); BILIRUBIN,TOTAL 1.5 mg/dL (0.2-1.3); BLOOD UREA NITROGEN 14 mg/dL (7-20); POTASSIUM 5.3 mmol/L (3.6-5.0)
[2020-01-16 13:03] LABS: URINE AMPHETAMINES SCREEN NEGATIVE; URINE BARBITURATES SCREEN NEGATIVE; URINE BENZODIAZEPINES SCREEN NEGATIVE; URINE COCAINE SCREEN NEGATIVE; URINE MARIJUANA (THC) SCREEN NEGATIVE; URINE METHADONE SCREEN NEGATIVE; URINE PHENCYCLIDINE SCREEN NEGATIVE
[2020-01-16 13:07] LABS: CARBON DIOXIDE 21 mmol/L (22-30); CHLORIDE 92 mmol/L (98-107)
[2020-01-16 13:11] LABS: ANION GAP 21 (5-19)
[2020-01-16 13:13] LABS: GLUCOSE 422 mg/dL (75-110)
[2020-01-16] MEDS ORDERED: DIPHENHYDRAMINE HCL 50 MG/ML VIAL IV ONE (16:43)
[2020-01-16] MEDS ORDERED: METOCLOPRAMIDE HCL INJ/PF 10 MG/2 ML SDV IV ONE (16:43)
--- NOTE | 2020-01-16 16:54 | ER Document Report ---
ED General - General Chief Complaint: Headache >24 hrs old Stated Complaint: HEADACHE Time Seen by Provider: 01/16/20 12:05 Primary Care Provider: RYAN GOMES MD [COMMUNITY BASED STAFF] - Follow up as needed Mode of Arrival: Wheelchair TRAVEL OUTSIDE OF THE [place] IN LAST 30 DAYS: No - HPI Notes: Patient is a 49-year-old gentleman with a history of mechanical valve, migraines, who presents to the emergency department for evaluation of a headache. He states he is had every day for about 3-1/2 weeks. Is always on the top of his head, but varies in location. Is worsened by bright light and noise. Nothing he has done at home seems to make it any better. He has had nausea and vomiting associated with it. He states that over the last few weeks his Lantus and Humalog were discontinued. He continues to take the regular medications that he has. He states that he cannot give me a clear reason why his insulin was discontinued, he states that it is because "his new doctor did not like it." Patient admits to polyuria and polydipsia. No fevers. - Related Data Allergies/Adverse Reactions: No Known Allergies Allergy (Verified 01/16/20 12:07) Home Medications: Coumadin 5 mg as directed, metformin 1 g twice daily, glipizide 5 mg daily, Synthroid 50 mcg daily, benazepril 5 mg daily, atorvastatin 20 mg daily, oxycodone 5/325, 1 every 6 hours as needed. Patient used to be on NovoLog 8 units before breakfast and before supper, as well as Lantus 60 units daily. He is no longer on insulin of any sort. Past Medical History - General Information source: Patient - Social History Smoking Status: Never Smoker Chew tobacco use (# tins/day): No Frequency of alcohol use: None Drug Abuse: None Family History: Reviewed & Not Pertinent, CAD, DM, Hyperlipidemia, Hypertension Patient has suicidal ideation: No Patient has homicidal ideation: No - Past Medical History Cardiac Medical History: Reports: Hx Congestive Heart Failure - dificulty breathing when lying down, sleeps sitting up, HAS MECHANICAL AORTIC VALVE, Hx Hypercholesterolemia, Hx Hypertension Denies: Hx Atrial Fibrillation, Hx Coronary Artery Disease, Hx Heart Attack, Hx Peripheral Vascular Disease, Hx Heart Murmur Pulmonary Medical History: Denies: Hx Asthma, Hx Bronchitis, Hx COPD, Hx Pneumonia, Hx Tuberculosis Neurological Medical History: Reports: Hx Migraine. Denies: Hx Cerebrovascular Accident, Hx Seizures Endocrine Medical History: Reports: Hx Diabetes Mellitus Type 1, Hx Diabetes Mellitus Type 2, Hx Hypothyroidism. Denies: Hx Graves' Disease, Hx Hyperthyroidism Renal/ Medical History: Reports: Hx Kidney Stones. Denies: Hx Benign Prostatic Hyperplasia, Hx End Stage Renal Disease, Hx Peritoneal Dialysis GI Medical History: Reports: Hx Gastroesophageal Reflux Disease Musculoskeletal Medical History: Reports Hx Arthritis, Denies Hx Fibromyalgia, Denies Hx Muscular Dystrophy, Reports Hx Musculoskeletal Deformity, Reports Hx Musculoskeletal Trauma, Denies Hx Systemic Lupus Erythematosus Skin Medical History: Denies Hx MRSA Psychiatric Medical History: Denies: Hx Depression Traumatic Medical History: Reports: Hx Fractures Past Surgical History: Reports: Hx Cardiac Surgery - aortic bicuspid valve, replaced with mechanical valve, Hx Cholecystectomy, Hx Herniorrhaphy, Hx Kidney (Renal Surgery), Hx Orthopedic Surgery - L ankle, Hx Tonsillectomy. Denies: Hx Appendectomy, Hx Bowel Surgery, Hx Gastric Bypass Surgery, Hx Pacemaker. Comment Only: Hx Coronary Artery Bypass Graft - MECHANICAL VALVE PLACEMENT, - Immunizations Immunizations up to date: Yes Hx Diphtheria, Pertussis, Tetanus Vaccination: No Review of Systems - Review of Systems Constitutional: See HPI Genitourinary: See HPI Neurological/Psychological: See HPI -: Yes All other systems reviewed and negative Physical Exam - Vital signs Vitals: Temp Pulse Resp BP Pulse Ox 97.5 F 93 22 H 109/78 97 01/16/20 11:33 01/16/20 11:33 01/16/20 11:33 01/16/20 11:33 01/16/20 11:33 - Notes Notes: This is a 49-year-old male who appears his stated age in a mild amount of stress. He is clearly uncomfortable, shielding his eyes. Vital signs reviewed, please refer to chart. Head is normocephalic, atraumatic. Pupils equal round, reactive to light. Neck is supple without meningismus. Heart is regular rate and rhythm with audible mechanical click. Lungs are clear to auscultation bilaterally. Abdomen is soft, nontender, normoactive bowel sounds throughout. Extremities without cyanosis, clubbing. Posterior calves are nontender. Peripheral pulses are equal. Skin is warm and dry. Patient is awake, alert, oriented x3. Cranial nerves II - XII are grossly intact without focal neurological deficits. Strength is plus 5 out of 5 bilateral upper and lower extremities. Sensation is intact. Reflexes symmetrical. Intact finger -nose-finger, rapid alternating movements, [id number]. Course - Re-evaluation Re-evalutation: 01/16/20 16:54 Patient presents emergency department for evaluation. He had laboratory investigations and fluids ordered, as well as Zofran. I did add Reglan and Benadryl. His laboratory vesication revealed significant hyperglycemia. My suspicion is this is all secondary to dehydration, secondary to hyperglycemia, secondary to discontinuing his insulin. Patient is given 2 L of fluids. We will recheck his blood sugar. At this point he has a normal neurological exam. He states that these headaches are typical of the migraine headaches that he gets. We will continue to monitor. 01/16/20 19:10 Patient is feeling improved after Reglan and Benadryl. He is treated for his hyperglycemia with extra insulin. I explained to the patient that I believe he needs to be back on his insulin and encouraged him strongly to discuss this with his primary care provider. I also discussed with the patient the fact that his INR is markedly subtherapeutic. He voiced understanding to this. He will continue his Coumadin and follow-up with provider. He is amenable to this plan. He is to return to the ED with worsening or new concerning symptoms of any sort. - Vital Signs Vital signs: Temp Pulse Resp BP Pulse Ox 97.5 F 93 22 H 109/78 97 01/16/20 11:33 01/16/20 11:33 01/16/20 11:33 01/16/20 11:33 01/16/20 11:33 - Laboratory Result Diagrams: 01/16/20 12:15 01/16/20 12:15 Laboratory results interpreted by me: 01/16/20 01/16/20 01/16/20 12:15 12:15 12:15 WBC 11.5 H RBC 6.24 H Hgb 17.2 H RDW 14.2 H Absolute Neuts (auto) 9.1 H Seg Neutrophils % 79.2 H Sodium 134.3 L Potassium 5.3 H Chloride 92 L Carbon Dioxide 21 L Anion Gap 21 H Glucose 422 H* POC Glucose Total Bilirubin 1.5 H Total Protein 8.6 H Albumin 5.2 H Urine Glucose (UA) >=500 H Urine Ketones 80 H Urine Blood SMALL H 01/16/20 17:40 WBC RBC Hgb RDW Absolute Neuts (auto) Seg Neutrophils % Sodium Potassium Chloride Carbon Dioxide Anion Gap Glucose POC Glucose 297 H Total Bilirubin Total Protein Albumin Urine Glucose (UA) Urine Ketones Urine Blood Discharge - Discharge Clinical Impression: Subtherapeutic international normalized ratio (INR), Hyperglycemia, Dehydration Migraine headache Qualifiers: Migraine type: without aura Status migrainosus presence: with status migrainosus Intractability: not intractable Qualified Code(s): G43.001 - Migraine without aura, not intractable, with status migrainosus Condition: Stable Disposition: HOME, SELF-CARE Instructions: Headache ([facility]), Reglan ([facility]), Hyperglycemia ([facility]) Additional Instructions: Rest and stay well-hydrated. I strongly suggest you discuss getting back on insulin with your primary care provider. I suspect this was contributing to your symptoms. Your INR was also found to be low at 1.1. You need to continue your Coumadin, discussed this with your primary care provider who adjust your Co umadin dosages, and be treated accordingly. Follow-up with primary care this week, return to the emergency department for worsening or new concerning symptoms of any sort. Referrals: RYAN GOMES MD [COMMUNITY BASED STAFF] - Follow up as needed
[2020-01-16] MEDS ORDERED: INSULIN REG, HUMAN 100 UNIT/ML 3 ML VIAL (PYX) IV ONE (17:49)
[2020-01-16 19:53] VITALS: BP 122/77
== END 2020-01-16 19:53 | disposition home or self-care (01) ==
LOC: ER 11:21
DX: G43.001 Migraine without aura, not intractable, with status migrainosus (principal); R79.1 Abnormal coagulation profile; E86.0 Dehydration; I50.9 Heart failure, unspecified; E78.00 Pure hypercholesterolemia, unspecified; I11.0 Hypertensive heart disease with heart failure; Z95.2 Presence of prosthetic heart valve; Z79.02 Long term (current) use of antithrombotics/antiplatelets; Z79.4 Long term (current) use of insulin; Z79.84 Long term (current) use of oral hypoglycemic drugs
CPT/HCPCS: 99283; 96361; 96374; 96375; 36415; 82962; 83690; 85025; 85610; 80053; 81001; 80307; J1200; J2765; A9270; J2405; J7030; J1815